=== PATIENT | female | born 1965 | race Caucasian/White ===

== ENCOUNTER 2016-08-08 08:48 | Emergency (ER) | payer BC ==
[~2016-08-08] VITALS: Ht 154.9 cm; Wt 73.2 kg
[2016-08-08 09:03] VITALS: TEMP 36.7; Ht 154.9 cm; Wt 73.2 kg
--- NOTE | 2016-08-08 09:03 | EMERGENCY ROOM VISIT NOTE ---
History Report prepared by Judd: Lamine Beasley Under the Supervision of: Dr. Daron Lam M.D. First contact with patient: 08:51 Chief Complaint: SYNCOPE Stated Complaint: SYNCOPE History of Present Illness The patient is a 50 year old female who presents to the Emergency Room with complaints of a resolved episode of syncope that occurred just prior to arrival. The patient was shoveling snow when she started to experience an aura. The patient then lost consciousness, which she does not remember. The patient's witnessed the episode. The patient was not feeling any headaches, chest pain, shortness of breath, or nausea prior to the episode. She denies abdominal pain, urinary symptoms, problems moving her bowels, weakness, or numbness. The patient does not currently have any complaints. As per EMS, the patient is hypotensive at baseline. The patient had a brownie and two glasses of orange juice this morning. The patient has been hypoglycemic before, but is not medicated for diabetes. She has a family history of diabetes. The patient has experienced syncope in the past, which was years ago. The patient does not believe she had a seizure. The patient is on her period currently. 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 Please see Additional Medical History Sheet. Past Medical & Surgical Medical Problems: (1) Migraines (2) Syncope Family History Cancer FH: diabetes mellitus Hypertension Social History Smoking Status: Never Smoker Housing Status: lives with family Occupation Status: employed Current/Historical Medications Scheduled Divalproex Sodium (Depakote Delay Rel), 2 TABS PO HS Topiramate (Topamax ), 3 TABS PO HS Scheduled PRN Sumatriptan Succinate (Imitrex), 25 MG PO PRN PRN for Migraine Allergies Coded Allergies: Sulfa Antibiotics (Unverified Allergy, Intermediate, UNKNOWN, 08/08/16) Sulfacetamide (Unverified Allergy, Intermediate, UNKNOWN, 08/08/16) Uncoded Allergies: N (Allergy, Unknown, 08/12/02) SULFA (Allergy, Unknown, 08/12/02) SULFACETAMIDE (Generic Allergy) (Allergy, Unknown, Y, 08/08/16) Physical Exam Vital Signs Date Time Temp Pulse Resp B/P Pulse Ox O2 Delivery O2 Flow Rate FiO2 08/08/16 10:53 83 20 114/58 96 Room Air 08/08/16 10:08 93 08/08/16 09:27 81 125/70 89 122/71 94 131/65 08/08/16 09:07 96 Room Air 08/08/16 09:03 36.7 103 16 111/69 96 Room Air Physical Exam GENERAL: Patient appears to be in no acute distress. Patient follows commands. Patient does not appear toxic. Patient is adequately hydrated and well- nourished. SKIN: No erythema, pallor, cyanosis or rash HEENT: Normal head, pupils equal, reactive to light and accommodation. Ears normal. Oral cavity and posterior pharynx appear normal. Neck: Without adenopathy, no neck vein distention. LUNGS: Clear to auscultation. No wheezes, no rales, no rhonchi. HEART: No murmurs. No gallops. No rubs ABDOMEN: No masses, no rebound, no hepatomegaly or splenomegaly. EXTREMITIES: No signs of trauma. No pedal or pretibial edema. No calf or thigh tenderness. NEUROLOGIC: Cranial nerves II-XII within normal limits. No gross motor sensory function deficits. Medical Decision & Procedures ER Provider Diagnostic Interpretation: X ray results are stated below per my interpretation and the radiologist's interpretation. CHEST 2 VIEWS ROUTINE CLINICAL HISTORY: syncope COMPARISON STUDY: No previous studies for comparison. FINDINGS: The cardiac and mediastinal contours are normal. There is no evidence of focal pulmonary consolidation. There is no evidence of failure. No pleural effusions are visualized.[ Minimally prominent right basilar markings are felt to be atelectatic. IMPRESSION: No active disease in the chest. Electronically signed by: Calvin Quispe M.D. 08/08/2016 9:45 AM Dictated Date/Time: 08/08/2016 9:44 AM Laboratory Results 08/08/16 09:15 Red Blood Count 4.95, Mean Corpuscular Volume 92.3, Mean Corpuscular Hemoglobin 31.1, Mean Corpuscular Hemoglobin Concent 33.7, Mean Platelet Volume 9.6, Neutrophils (%) (Auto) 75.6, Lymphocytes (%) (Auto) 15.6, Monocytes (%) (Auto) 6.5, Eosinophils (%) (Auto) 1.5, Basophils (%) (Auto) 0.5, Neutrophils # (Auto) 4.89, Lymphocytes # (Auto) 1.01, Monocytes # (Auto) 0.42, Eosinophils # (Auto) 0.10, Basophils # (Auto) 0.03 08/08/16 09:15 Test 08/08/16 09:15 White Blood Count 6.47 K/uL (4.8-10.8) Red Blood Count 4.95 M/uL (4.2-5.4) Hemoglobin 15.4 g/dL (12.0-16.0) Hematocrit 45.7 % (37-47) Mean Corpuscular Volume 92.3 fL (80-100) Mean Corpuscular Hemoglobin 31.1 pg (25-34) Mean Corpuscular Hemoglobin Concent 33.7 g/dl (32-36) Platelet Count 247 K/uL (130-400) Mean Platelet Volume 9.6 fL (7.4-10.4) Neutrophils (%) (Auto) 75.6 % Lymphocytes (%) (Auto) 15.6 % Monocytes (%) (Auto) 6.5 % Eosinophils (%) (Auto) 1.5 % Basophils (%) (Auto) 0.5 % Neutrophils # (Auto) 4.89 K/uL (1.4-6.5) Lymphocytes # (Auto) 1.01 K/uL (1.2-3.4) Monocytes # (Auto) 0.42 K/uL (0.11-0.59) Eosinophils # (Auto) 0.10 K/uL (0-0.5) Basophils # (Auto) 0.03 K/uL (0-0.2) RDW Standard Deviation 43.5 fL (36.4-46.3) RDW Coefficient of Variation 12.9 % (11.5-14.5) Immature Granulocyte % (Auto) 0.3 % Immature Granulocyte # (Auto) 0.02 K/uL (0.00-0.02) Anion Gap 10.0 mmol/L (3-11) Est Creatinine Clear Calc Drug Dose 72.4 ml/min Estimated GFR () 91.9 Estimated GFR (Non- 79.3 BUN/Creatinine Ratio 16.5 (10-20) Calcium Level 9.1 mg/dl (8.5-10.1) Total Bilirubin 0.3 mg/dl (0.2-1) Aspartate Amino Transf (AST/SGOT) 12 U/L (15-37) Alanine Aminotransferase (ALT/SGPT) 22 U/L (12-78) Alkaline Phosphatase 61 U/L (45-117) Troponin I < 0.015 ng/ml (0-0.045) Total Protein 7.3 gm/dl (6.4-8.2) Albumin 3.8 gm/dl (3.4-5.0) Globulin 3.5 gm/dl (2.5-4.0) Albumin/Globulin Ratio 1.1 (0.9-2) Thyroid Stimulating Hormone (TSH) 1.670 uIu/ml (0.300-4.500) Human Chorionic Gonadotropin, Quant < 1 mIU/mL Laboratory results as stated above per my review. ECG Indication: syncope Rate (beats per minute): 93 Rhythm: normal sinus Findings: no acute ischemic change, no ectopy ED Course 0852: Past medical records reviewed. The patient was evaluated in room B9. A complete history and physical examination was performed. 1055: Reassessed the patient. Discussed the findings with her. She verbalized understanding and agreement of the treatment plan. The patient is ready for discharge. Medical Decision I considered multiple diagnoses including vasovagal syncope, arrhythmia, hypoglycemia, other metabolic disorders, hypotension,CVA, TIA, seizure disorder. 50-year-old female with syncopal episode. The patient is a prior history of low blood sugars. The patient ate some brownies prior to arrival of the medics. At that time the blood sugar was found to be left greater than 200. The patient now is asymptomatic. She has no fever, chills. She has no chest pain or arrhythmia. During her stay in the ED she remained asymptomatic. Multiple labs, EKG and imaging were evaluated. Please see above. The patient had orthostatic vital signs obtained which were felt to be within normal range. She had an ambulatory trial prior to departure and felt fine. The patient will be discharged and encouraged to follow-up with her family physician. Impression Primary Impression: Syncope Scribe Attestation The scribe's documentation has been prepared under my direction and personally reviewed by me in its entirety. I confirm that the note above accurately reflects all work, treatment, procedures, and medical decision making performed by me. Departure Information Dispostion Home / Self-Care Referrals Andrews Amado Jr,D.O. (PCP) Patient Instructions ED Fainting Unkn Cause, My [facility] Additional Instructions Continue your current medications as prescribed. Follow-up with your family physician within the next 7 days. Return here sooner if you have another fainting episode.
[2016-08-08 09:07] VITALS: O2SAT 96
[2016-08-08 09:41] LABS: BASO % 0.5 %; BASO ABS # 0.03 K/uL (0-0.2); COMPLETE YES; EOS % 1.5 %; HEMATOCRIT 45.7 % (37-47); IG% 0.3 %; LYMPH % 15.6 %; LYMPH ABS # 1.01 K/uL (1.2-3.4); MEAN CELL VOLUME 92.3 fL (80-100); MEAN CORPUSCULAR HEMOGLOBIN 31.1 pg (25-34); MEAN CORPUSCULAR HGB CONC 33.7 g/dl (32-36); MEAN PLATELET VOLUME 9.6 fL (7.4-10.4); MONO % 6.5 %; NEUT % 75.6 %; PLATELET COUNT 247 K/uL (130-400); RED BLOOD COUNT 4.95 M/uL (4.2-5.4); WHITE BLOOD COUNT 6.47 K/uL (4.8-10.8)
--- NOTE | 2016-08-08 09:46 | DIAGNOSTIC IMAGING REPORT ---
CHEST 2 VIEWS ROUTINE CLINICAL HISTORY: syncope COMPARISON STUDY: No previous studies for comparison. FINDINGS: The cardiac and mediastinal contours are normal. There is no evidence of focal pulmonary consolidation. There is no evidence of failure. No pleural effusions are visualized.[ Minimally prominent right basilar markings are felt to be atelectatic. IMPRESSION: No active disease in the chest. Electronically signed by: Calvin Quispe M.D. 08/08/2016 9:45 AM Dictated Date/Time: 08/08/2016 9:44 AM
[2016-08-08] MEDS ORDERED: TOPI25TA99 PO (09:48)
[2016-08-08] MEDS ORDERED: DIVA250T4 PO (09:48)
[2016-08-08] MEDS ORDERED: SUMA25TA12 PO (09:48)
[2016-08-08 09:49] LABS: ALT/SGPT 22 U/L (12-78); BLOOD UREA NITROGEN 14 mg/dl (7-18); BUN/CREATININE RATIO 16.5 (10-20); CALCIUM 9.1 mg/dl (8.5-10.1); CARBON DIOXIDE 21 mmol/L (21-32); CHLORIDE 111 mmol/L (98-107); CREATININE 0.86 mg/dl (0.60-1.20); GLUCOSE 90 mg/dl (70-99); POTASSIUM 3.9 mmol/L (3.5-5.1); SODIUM 142 mmol/L (136-145)
[2016-08-08 09:59] LABS: ALB/GLOB RATIO 1.1 (0.9-2); ALKALINE PHOSPHATASE 61 U/L (45-117); AST/SGOT 12 U/L (15-37)
[2016-08-08 10:53] VITALS: BP 114/58; PULSE 83; O2SAT 96
== END 2016-08-08 11:16 | disposition home or self-care (01) ==
LOC: EDBD 08:48 → C.EDB 08:50
DX: R55 Syncope and collapse (principal)

== ENCOUNTER → 2016-10-10 | Outpatient (CLI) | payer BC ==
[~2016-10-10] MED LIST: DIVA250T4 PO; SUMA25TA12 PO; TOPI25TA99 PO
--- NOTE | 2016-10-18 10:33 | CODING QUERY NO DIAGNOSIS ---
TREATMENT RENDERED WITHOUT A DIAGNOSIS To promote full compliance with coding requirements relating to patient care, physician participation is requested in all cases of zyglo technician uncertainty. Please assist us with providing a diagnosis/symptom for the test(s) below: A diagnosis/symptom was not documented on your Order. A valid diagnosis/symptom is required to bill all insurances. Please remember that we are unable to code a diagnosis of rule out, probable, possible, questionable, or suspected. Tests that require a diagnosis for tests performed on 10/10/16: * THIN PREP PAP TEST DIAGNOSIS: Provider Signature: Date: Thank you Camille Brown [employer] Once completed, please kindly fax back to [phone] For questions please call [phone]
== END ==
LOC: C.PAPS 11:35
PROVIDERS: ATTEND Nurse Practitioner Family
DX: Z01.411 Encounter for gynecological examination (general) (routine) with abnormal findings (principal)

== ENCOUNTER → 2016-10-11 | Outpatient (CLI) | payer BC ==
--- NOTE | 2016-10-11 14:18 | DIAGNOSTIC IMAGING REPORT ---
PELVIC ULTRASOUND CLINICAL HISTORY: Menorrhagia. COMPARISON STUDY: None. TECHNIQUE: Transabdominal and transvaginal sonography of the pelvis was performed. FINDINGS: The uterus measures 8.7 x 5.2 x 4.2 cm. The endometrium measures 6 mm in thickness. There are several nabothian cysts. The right ovary measures 2.5 x 2.5 x 1.7 cm and the left ovary measures 2.9 x 2.1 x 1.5 cm. Color flow is identified within each ovary. There are multiple follicles within each ovary. A 1.2 cm right paraovarian cyst was noted. There is no free fluid. IMPRESSION: Unremarkable pelvic ultrasound. Normal endometrial thickness of 6 mm. Electronically signed by: Wenceslao Estrada M.D. 10/11/2016 2:16 PM Dictated Date/Time: 10/11/2016 2:15 PM
== END | disposition home or self-care (01) ==
LOC: C.ULTR 13:15
PROVIDERS: ATTEND Nurse Practitioner Family
DX: N92.0 Excessive and frequent menstruation with regular cycle (principal)

== ENCOUNTER → 2017-01-08 | Outpatient (CLI) | payer BC | END | disposition home or self-care (01) | LOC: C.LABSPEC 10:47 | DX: L03.039 Cellulitis of unspecified toe (principal) ==

== ENCOUNTER → 2017-01-28 | Outpatient (CLI) | payer BC ==
--- NOTE | 2017-01-28 13:09 | MAMMOGRAPHY REPORT ---
BILATERAL DIGITAL SCREENING MAMMOGRAM TOMOSYNTHESIS WITH CAD: 01/28/2017 CLINICAL HISTORY: Routine screening. Patient has no complaints. TECHNIQUE: Breast tomosynthesis in addition to standard 2D mammography was performed. Current study was also evaluated with a Computer Aided Detection (CAD) system. COMPARISON: Comparison is made to exams dated: 01/25/2016 mammogram, 01/23/2015 mammogram, 01/18/2014 m ammogram, 01/12/2013 mammogram, 01/08/2012 mammogram, and 01/03/2011 mammogram - [facility] nter. BREAST COMPOSITION: There are scattered areas of fibroglandular density in both breasts. FINDINGS: There are multiple circumscribed subcentimeter masses scattered in the breasts, which is a typically benign mammographic pattern. No suspicious spiculated or irregular mass, architectural dis tortion or cluster of suspicious microcalcifications is seen. IMPRESSION: ACR BI-RADS CATEGORY 1: NEGATIVE There is no mammographic evidence of malignancy. A 1 year screening mammogram is recommended. The pa tient will receive written notification of the results. Approximately 10% of breast cancers are not detected with mammography. A negative mammographic report should not delay biopsy if a clinically suggestive mass is present. Katia Arzate M.D. ay/:01/28/2017 08:16:20 Disability Aide: Mary ARMANDO)(M), [facility] letter sent: Normal 1/2 BI-RADS Code: ACR BI-RADS Category 1: Negative
== END | disposition home or self-care (01) ==
LOC: C.MAMM 07:15
DX: Z12.31 Encounter for screening mammogram for malignant neoplasm of breast (principal)

== ENCOUNTER → 2018-02-03 | Outpatient (CLI) | payer OTHER ==
[~2018-02-03] MED LIST changes: -DIVA250T4 PO; +DIVA250T93 PO
--- NOTE | 2018-02-03 14:44 | MAMMOGRAPHY REPORT ---
BILATERAL DIGITAL SCREENING MAMMOGRAM TOMOSYNTHESIS WITH CAD: 02/03/2018 CLINICAL HISTORY: Routine screening examination. TECHNIQUE: The study was acquired using full field digital technology and interpreted from soft copy. Breast tomosynthesis in addition to standard 2D mammography was performed. Current study was also ev aluated with a Computer Aided Detection (CAD) system. COMPARISON: Comparison is made to exams dated: 01/28/2017 mammogram, 01/25/2016 mammogram, 01/23/2015 ma mmogram, 01/18/2014 mammogram, 01/12/2013 mammogram, and 01/03/2011 mammogram - [facility] ter. BREAST COMPOSITION: There are scattered areas of fibroglandular density in both breasts. FINDINGS: The parenchymal pattern is unchanged. No developing mass, architectural distortion or cluster of susp icious microcalcifications is seen in either breast. IMPRESSION: ACR BI-RADS CATEGORY 2: BENIGN There is no mammographic evidence of malignancy. A 1 year screening mammogram is recommended.( 019) The patient will receive written notification of the results. Some breast cancers are not detected with mammography. A negative mammographic report should not carlos y biopsy if a clinically suggestive mass is present. Katia Arzate M.D. ay/:02/03/2018 08:13:34 Supervisor [employer]: RT Zayra(Mckenzie)(M), [facility] letter sent: Normal 1/2 BI-RADS Code: ACR BI-RADS Category 2: Benign
== END | disposition home or self-care (01) ==
LOC: C.MAMM 07:19
DX: Z12.31 Encounter for screening mammogram for malignant neoplasm of breast (principal)

== ENCOUNTER 2023-11-04 08:21 | Observation (INO) ==
[~2023-11-04 08:21] MED LIST changes: -DIVA250T93 PO; -SUMA25TA12 PO; -TOPI25TA99 PO; +metroNIDAZOLE 500 MG/100 ML BAG IV SCH
--- NOTE | 2023-11-04 08:34 | Emergency Department Note ---
Impression & Plan Abdominal pain ADMIT ED Provider Note HPI: History obtained from patient. The patient is a 57-year-old female who presents the emergency department with a chief complaint of lower chest pain and epigastric discomfort that developed overnight. Patient states she is also had some nausea but denies any vomiting. Patient describes the pain as a burning type pain in her epigastric area. Patient denies any shortness of breath. On arrival here to the ED the patient is hemodynamically stable, she otherwise appears to be in no acute distress. ROS: - Per HPI Differential Diagnosis: Acute cholecystitis, acute pancreatitis, acute gastritis, acute esophagitis, acute coronary syndrome, choledocholithiasis, amongst other potential pathologies. *Outpatient medications and allergy history reviewed. PE: General: Alert HEENT: Normocephalic, trachea midline Eyes: Extraocular eye movement is intact, no scleral erythema Pulmonary: Clear to auscultation bilaterally, no wheezing Cardio: Regular rate and rhythm GI: Abdomen is soft to palpation, there is moderate tenderness over the epigastric area to palpation without guarding or rigidity : No suprapubic tenderness MSK: No evidence of trauma or malformation of the extremities, no edema Skin: No evidence of rash Neuro: Alert, no focal deficits Psychiatric: Cooperative INDEPENDENT INTERPRETATIONS: nuclear monitoring technician: (As interpreted by myself): - An order was placed for continuous cardiac monitoring - Patient was noted to be in sinus rhythm with a rate of 80 EKG: (As interpreted by myself): Rate: 85 Rhythm: Normal sinus rhythm Intervals: Within normal limits ST changes: No ST elevation Time: 0827 Chest x-ray: (As interpreted by myself): No acute disease Interventions provided in ED: -IV Zofran Medical Decision Making: IV was established and lab work obtained, patient was placed on nuclear monitoring technician. Lab work shows a mild leukocytosis of 11.11, hemoglobin is normal, platelet count is normal, CMP shows a transaminitis with AST of 486 and ALT of 283. Bilirubin is normal. Troponin is negative. Lipase is normal. EKG per my interpretation does not show any acute ischemic changes. Chest x-ray does not show any evidence of acute disease. CT imaging of the abdomen and pelvis was obtained and is questionable for acute cholecystitis. Also mentioned is horseshoe kidney with areas concerning for possible angiomyolipoma recommending nonemergent urology consultation, per the interpreting radiologist. I discussed all the above findings with the patient. She states she does feel improved on my reassessment. She is in agreement for general surgery consultation in regards to possible acute cholecystitis and was made aware of the finding of horseshoe kidney with possible angiomyolipomas and need for outpatient follow-up with urology. Patient was evaluated at the bedside by general surgery, ultrasound imaging was obtained following the initial evaluation by general surgery and ultrasound imaging is equivocal for acute cholecystitis. CBD is noted to be the upper limit of normal. Following the studies, recommendation was made by general surgery for admission to the hospitalist service for further workup of transaminitis including MRCP and surgical consultation in the event surgical intervention is warranted following MRCP and possibly HIDA scan. Case was discussed with the on-call hospitalist, Dr. Muhammad, and the patient was placed for admission in stable condition for further care. Consultants/Discussions held with other healthcare providers: -General surgery, Rhonda Starks PA-C / Dr. Rivas -Hospitalist, Dr. Muhammad Disposition discussion held by myself with: -Patient Diagnosis: 1. Abdominal pain, acute 2. Transaminitis, acute 3. Leukocytosis, acute, nonspecific 4. Nausea, acute Disposition: Admission Fernando Morales DO Emergency Medicine Past Med/Surg History Medical History (Updated 11/04/23 @ 14:05 by Fernando Morales DO) Horseshoe kidney Hyperlipidemia Arthritis of carpometacarpal (CMC) joint of left thumb De Quervain's tenosynovitis Migraines Surgical History S/P cataract extraction S/P tooth extraction Family History Father Hypertension Myocardial infarction Parkinson disease Sister Diabetes Brother Migraine headache Son Migraine headache Mother Cancer Uterine Sister Diabetes Denies family history of Ovarian cancer Prostate cancer Breast cancer Colorectal cancer Social History Smoking Status: Never smoker Second Hand Exposure: Yes; Do You Dip or Chew Tobacco: No; Hx Alcohol Use: Yes Alcohol Intake Frequency: Monthly or Less Alcohol Intake Frequency Comment: very social Hx Substance Use: No Preferred Language: Irish Communication Ability: Effective Visual Impairment: Partially Limited Hearing Ability: Normal Business Process Expert Required: No Beliefs That Will Affect Care: None marital status: Current Living Situation: Spouse Current Living Situation Comment: 4 goats, 14 chickens, 2 dogs current occupational status: employed and retired current occupation: retired from [employer]; owns own business (2) now How many Children do You have: 2 Feels Safe at Home: Yes Childhood Exposure to Second-Hand Smoke: No Diet: regular Diet Comment: regular caffeine: Yes (iced tea) during the past year weight has: remained stable Dental Care, Regularly: Yes Physical Activity Frequency: Daily Seatbelt Use: always Sunscreen Use: Yes Allergies Allergies Allergy/AdvReac Type Severity Reaction Status Date / Time Sulfa (Sulfonamide Allergy Intermediate UNKNOWN Verified 11/04/23 09:42 Antibiotics) Home Meds Previous Rx's Medication Instructions Recorded betamethasone dipropionate 0.05 % 1 applic topical BID PRN skin 04/11/22 topical cream irritation #45 grams fremanezumab-vfrm 225 mg/1.5 mL 225 mg (1.5 mL) subcut MONTHLY #1 06/10/23 subcutaneous syringe mL sumatriptan succinate 100 mg tablet 100 mg PO .COMPLEX PRN migraine 06/10/23 headache #9 tabs meloxicam 15 mg tablet 15 mg PO DAILY #30 tabs 08/14/23 Results & Data (ED) Vital Signs Vital Signs - 24 hr 11/04/23 08:25 11/04/23 08:35 11/04/23 08:54 Temperature 36.7 C Temperature Source Oral Pulse Rate 88 77 Pulse Rate [Right Finger] Respiratory Rate 18 Respiratory Effort / Characteristics Non-Labored Respiratory Depth Normal Respiratory Pattern Regular Blood Pressure 143/65 H Blood Pressure [Right Arm] Blood Pressure Mean 91 Blood Pressure Mean [Right Arm] Pulse Oximetry 98 Oxygen Delivery Method Room Air Room Air Sepsis Recent Fever Within 48 Hours No Sepsis New/Unexplained Change in Mental Status N/A Sepsis Action Taken by Nursing No Action Required 11/04/23 09:35 11/04/23 11:06 11/04/23 12:31 Temperature Temperature Source Pulse Rate Pulse Rate [Right Finger] 72 84 84 Respiratory Rate 22 20 22 Respiratory Effort / Characteristics Non-Labored Non-Labored Spontaneous Non-Labored Spontaneous Respiratory Depth Normal Normal Normal Respiratory Pattern Blood Pressure Blood Pressure [Right Arm] 122/60 126/86 109/76 Blood Pressure Mean Blood Pressure Mean [Right Arm] 80 99 87 Pulse Oximetry 97 96 97 Oxygen Delivery Method Room Air Room Air Room Air Sepsis Recent Fever Within 48 Hours Sepsis New/Unexplained Change in Mental Status Sepsis Action Taken by Nursing 11/04/23 13:06 Temperature Temperature Source Pulse Rate 76 Pulse Rate [Right Finger] Respiratory Rate Respiratory Effort / Characteristics Respiratory Depth Respiratory Pattern Blood Pressure Blood Pressure [Right Arm] Blood Pressure Mean Blood Pressure Mean [Right Arm] Pulse Oximetry Oxygen Delivery Method Sepsis Recent Fever Within 48 Hours Sepsis New/Unexplained Change in Mental Status Sepsis Action Taken by Nursing Laboratory Data 11/04/23 08:30 11/04/23 08:30 Lab Results 11/04/23 Range/Units 08:30 WBC 11.11 H (4.8-10.8) K/ul RBC 4.99 (4.20-5.40) M/uL Hgb 14.7 (12.0-16.0) g/dl Hct 44.5 (37.0-47.0) % MCV 89.2 (80.0-100.0) fL MCH 29.5 (25.0-34.0) pg MCHC 33.0 (32.0-36.0) g/dL RDW Std Deviation 39.9 (36.4-46.3) fL RDW Coeff of Sissy 12.2 (11.5-14.5) % Plt Count 269 (130-400) K/uL MPV 9.4 (9.4-12.4) fL Immature Gran % (Auto) 0.4 % Neut % (Auto) 84.5 % Lymph % (Auto) 9.1 % [place] % (Auto) 5.3 % Eos % (Auto) 0.2 % Baso % (Auto) 0.5 % Neut # (Auto) 9.40 H (1.40-6.50) K/uL Lymph # (Auto) 1.01 L (1.20-3.40) K/uL [place] # (Auto) 0.59 (0.11-0.59) K/uL Eos # (Auto) 0.02 (0.00-0.50) K/uL Baso # (Auto) 0.05 (0.00-0.20) K/uL Immature Gran # (Auto) 0.04 (0.01-0.20) K/uL PT 10.2 (9.0-12.0) Seconds INR 0.9 (0.9-1.1) Sodium 139 (136-145) mmol/L Potassium 3.9 (3.5-5.1) mmol/L Chloride 104 (98-107) mmol/L Carbon Dioxide 27 (21-32) mmol/L Anion Gap 8 (3-11) BUN 21 (6-23) mg/dl Creatinine 0.70 (0.6-1.2) mg/dl Est Cr Clr Drug Dosing 81.9 ml/min Est GFR ( Amer) 112.3 ml/min Est GFR (Non-Af Amer) 96.9 ml/min BUN/Creatinine Ratio 30.0 H (10-20) Glucose 112 H (70-99(Fasting)) mg/dl Calcium 9.2 (8.6-10.3) mg/dl Total Bilirubin 0.7 (0.2-1.0) mg/dl AST 486 H (13-39) U/L ALT 283 H (7-52) U/L Alkaline Phosphatase 85 (34-104) U/L Troponin I High Sens 4.2 (0-14) pg/ml Total Protein 6.9 (6.0-8.3) gm/dl Albumin 4.4 (3.4-5.0) gm/dl Globulin 2.5 (2.5-4.0) gm/dl Albumin/Globulin Ratio 1.8 (0.9-2) Lipase 17 (11-82) U/L Administered Medications Discontinued Medications Ioversol (Optiray 320 100ml) 95 ml IV ONCE ONE Stop: 11/04/23 09:22 Last Admin: 11/04/23 09:21 Dose: 95 ml Documented By: KSF Ondansetron HCl (Ondansetron Inj 2 Mg/Ml 2 Ml Vial) Confirm Administered Dose 4 mg .ROUTE .STK-MED ONE Stop: 11/04/23 08:39 Last Admin: 11/04/23 08:38 Dose: 4 mg Documented By: NRB Ondansetron HCl (Ondansetron Inj 2 Mg/Ml 2 Ml Vial) 4 mg IV NOW STA Stop: 11/04/23 08:40 Last Admin: 11/04/23 08:56 Dose: Not Given Documented By: NRB Imaging Data Radiologist's Impression: Chest X-Ray 11/04/23 08:25 XR chest 1V portable HISTORY: Chest pain, nonspecific COMPARISON: Chest 08/08/2016. FINDINGS: There are low lung volumes. No focal lung consolidations to suggest a pneumonia. No evidence for pulmonary edema. The cardiac silhouette remains top normal in size. No acute fractures. IMPRESSION: No acute process. ACT 112: Negative or not required by law. Electronically signed by: Justino La M.D. 11/04/2023 8:59 AM Abdomen/Pelvis CT 11/04/23 09:[address] WITH IV CONTRAST CT DOSE: 932.4 mGy.cm HISTORY: upper abd pain TECHNIQUE: Multiaxial CT images of the abdomen and pelvis were performed following the use of intravenous contrast. A dose lowering technique was utilized adhering to the principles of ALARA. COMPARISON STUDY: None. FINDINGS: Patchy and linear densities at the lung bases favor dependent change/atelectasis. No pneumoperitoneum. No pneumatosis. No acute fractures identified. There is a 3 cm duodenal diverticulum. A 5 mm hypodense lesion within the right hepatic lobe on image 48 is too small to characterize but favors a cyst. There is an 8 mm hypodense focus within the posterior segment of the right hepatic lobe on image 35. There is also too small to characterize but may represent a benign lesion such as a hemangioma. The spleen, adrenal glands, and pancreas are unremarkable. Multiple small gallstones. There is pericholecystic edema. This raises the possibility of an acute cholecystitis. There is a horseshoe kidney. No ureteral stones. No hydronephrosis. There appear to be a few punctate nonobstructing stones within the left lower pole moiety on image 153. In addition, the left renal moiety contains 2 similar-appearing masses. These renal masses demonstrate soft tissue and macroscopic fatty components. Therefore, these favor angiomyolipomas. These masses measure 5.2 cm and 5.5 cm. The main portal vein is patent. No retroperitoneal lymphadenopathy. There is a left circumaortic renal vein. Normal caliber abdominal aorta. No pelvic lymphadenopathy or pelvic free fluid. The bladder is mildly distended. No bladder wall thickening. The uterus and bilateral adnexa are unremarkable. Colonic diverticulosis. No evidence for acute diverticulitis. Normal appendix. No bowel wall thickening or obstruction. IMPRESSION: 1. Multiple small gallstones with pericholecystic edema. This raises the possibility of acute cholecystitis. Surgical consultation recommended. 2. Horseshoe kidney. There are few punctate nonobstructing stones within the left renal moiety. No ureteral stones. No hydronephrosis. 3. There are 2 similar-appearing masses within the left renal moiety which contain macroscopic fat and therefore favor angiomyolipomas. Both these lesions measure greater than 5 cm in size. Therefore, follow-up nonemergent urology consultation recommended for possible resection as these lesions present a high risk of hemorrhage. 4. No bowel wall thickening or obstruction. 5. Normal appendix. 6. Additional findings as described above. ACT 112: Negative or not required by law. Electronically signed by: Justino La M.D. 11/04/2023 10:00 AM Liver Ultrasound 11/04/23 10:51 ABDOMINAL ULTRASOUND, RIGHT UPPER QUADRANT HISTORY: eval acute king, elevated AST/AST. COMPARISON: Abdomen and pelvis CT 11/04/2023. FINDINGS: Pancreas: The pancreas demonstrates a normal echotexture. Liver: There is 9 mm cyst within the right hepatic lobe. The main portal vein is patent. Gallbladder: A few small gallstones. Mild gallbladder wall thickening and trace pericholecystic edema. The gallbladder wall measures approximately 5 mm. However, the technologist reported a negative sonographic Dobbins sign. CBD: Upper limits of normal measuring 6 mm. Right kidney: Horseshoe kidney again noted. No hydronephrosis. Partially visualized mass within the left lower pole moiety again noted which is better appreciated on the same day abdomen and pelvis CT. IMPRESSION: 1. A few small gallstones with gallbladder wall thickening and trace pericholecystic fluid. However, the technologist reported a negative sonographic Dobbins sign. Therefore, these findings are equivocal for acute cholecystitis and could be related to underlying hepatic pathology or a low protein state. Consider follow-up nuclear medicine HIDA scan if there is clinical concern for acute cholecystitis. 2. Horseshoe kidney. No hydronephrosis. A partially visualized mass within the left lower pole moiety is better appreciated on the same day abdomen and pelvis CT. ACT 112: Negative or not required by law. Electronically signed by: Justino La M.D. 11/04/2023 12:01 PM Discharge Plan Visit Data Chief Complaint: Chest Pain Stated Complaint: CHEST PAINS, NAUSEA, SWEATS ED Provider: Fernando Morales Discharge Problem: Abdominal pain Forms Stand Alone Forms: My [facility] [place] [employer] IDE Prescriptions Prescriptions: No Action meloxicam 15 mg tablet 15 mg PO DAILY Qty: 30 3RF betamethasone dipropionate 0.05 % cream 1 applic topical BID PRN (Reason: skin irritation) Qty: 45 0RF Rx Instructions: apply to L wrist/hand fremanezumab-vfrm 225 mg/1.5 mL syringe 225 mg subcut MONTHLY Qty: 1 11RF sumatriptan succinate 100 mg tablet 100 mg PO .COMPLEX PRN (Reason: migraine headache) Qty: 9 5RF Rx Instructions: 100 mg PO TAKE 1 TAB AT ONSET OF MIGRAINE. MAY REPEAT IN 2 HOURS IF NEEDED. LIMIT 3 DAYS PER WEEK Referrals Referrals: Danis Arzate MD [Physician] - (The urology office will call you with an appointment with one of the urology staff to discuss the results of your CT scan findings) Anabel Ingram DO [Primary Care Provider] -
[2023-11-04] MEDS: ONDANSETRON INJ 2 MG/ML 2 ML VIAL ONE ×2 (08:38→14:48)
[2023-11-04] MEDS: ONDANSETRON INJ 2 MG/ML 2 ML VIAL IV STA (08:56)
[2023-11-04 08:58] LABS: Basophils # (auto) 0.05 K/uL (0.00-0.20); Basophils % (auto) 0.5 %; Eosinophils # (auto) 0.02 K/uL (0.00-0.50); Eosinophils % (auto) 0.2 %; Hematocrit (blood only) 44.5 % (37.0-47.0); Hemoglobin 14.7 g/dl (12.0-16.0); Immature Granulocytes # (auto) 0.04 K/uL (0.01-0.20); Immature Granulocytes % (auto) 0.4 %; Lymphocytes # (auto) 1.01 K/uL (1.20-3.40); Lymphocytes % (auto) 9.1 %; Mean Corpuscular Hemoglobin 29.5 pg (25.0-34.0); Mean Corpuscular Volume 89.2 fL (80.0-100.0); Mean Platelet Volume 9.4 fL (9.4-12.4); Monocytes # (auto) 0.59 K/uL (0.11-0.59); Monocytes % (auto) 5.3 %; Neutrophils % (auto) 84.5 %; Platelet Count 269 K/uL (130-400); RDW Coefficient of Variation 12.2 % (11.5-14.5); RDW Standard Deviation 39.9 fL (36.4-46.3); Red Blood Count 4.99 M/uL (4.20-5.40); White Blood Count 11.11 K/ul (4.8-10.8)
--- NOTE | 2023-11-04 09:01 | XRay Report ---
XR chest 1V portable HISTORY: Chest pain, nonspecific COMPARISON: Chest 08/08/2016. FINDINGS: There are low lung volumes. No focal lung consolidations to suggest a pneumonia. No evidenc e for pulmonary edema. The cardiac silhouette remains top normal in size. No acute fractures. IMPRESSION: No acute process. ACT 112: Negative or not required by law. Electronically signed by: Justino La M.D. 11/04/2023 8:59 AM
[2023-11-04 09:04] LABS: INR 0.9 (0.9-1.1); Prothrombin Time 10.2 Seconds (9.0-12.0)
[2023-11-04 09:09] LABS: Albumin Globulin Ratio 1.8 (0.9-2); Albumin Level 4.4 gm/dl (3.4-5.0); Bilirubin,Total 0.7 mg/dl (0.2-1.0); Calcium 9.2 mg/dl (8.6-10.3); Creatinine Clr Calc Pharmacy 81.9 ml/min; Est GFR (African American) 112.3 ml/min; Est GFR (Non-African American) 96.9 ml/min; Globulin 2.5 gm/dl (2.5-4.0); Potassium 3.9 mmol/L (3.5-5.1); Total Protein 6.9 gm/dl (6.0-8.3)
[2023-11-04 09:15] LABS: Troponin I High Sensitivity 4.2 pg/ml (0-14)
[2023-11-04] MEDS: OPTIRAY 320 100ml IV ONE (09:21)
--- NOTE | 2023-11-04 10:03 | CT Scan Report ---
ABDOMEN AND PELVIS CT WITH IV CONTRAST CT DOSE: 932.4 mGy.cm HISTORY: upper abd pain TECHNIQUE: Multiaxial CT images of the abdomen and pelvis were performed following the use of intrave nous contrast. A dose lowering technique was utilized adhering to the principles of ALARA. COMPARISON STUDY: None. FINDINGS: Patchy and linear densities at the lung bases favor dependent change/atelectasis. No pneumo peritoneum. No pneumatosis. No acute fractures identified. There is a 3 cm duodenal diverticulum. A 5 mm hypodense lesion within the right hepatic lobe on image 48 is too small to characterize but favor s a cyst. There is an 8 mm hypodense focus within the posterior segment of the right hepatic lobe on image 35. There is also too small to characterize but may represent a benign lesion such as a hemangi moreno. The spleen, adrenal glands, and pancreas are unremarkable. Multiple small gallstones. There is p ericholecystic edema. This raises the possibility of an acute cholecystitis. There is a horseshoe kid candace. No ureteral stones. No hydronephrosis. There appear to be a few punctate nonobstructing stones w ithin the left lower pole moiety on image 153. In addition, the left renal moiety contains 2 similar- appearing masses. These renal masses demonstrate soft tissue and macroscopic fatty components. Theref ore, these favor angiomyolipomas. These masses measure 5.2 cm and 5.5 cm. The main portal vein is pat ent. No retroperitoneal lymphadenopathy. There is a left circumaortic renal vein. Normal caliber abdo jonathan aorta. No pelvic lymphadenopathy or pelvic free fluid. The bladder is mildly distended. No blad meño wall thickening. The uterus and bilateral adnexa are unremarkable. Colonic diverticulosis. No joy dence for acute diverticulitis. Normal appendix. No bowel wall thickening or obstruction. IMPRESSION: 1. Multiple small gallstones with pericholecystic edema. This raises the possibility of acute cholecy stitis. Surgical consultation recommended. 2. Horseshoe kidney. There are few punctate nonobstructing stones within the left renal moiety. No ur eteral stones. No hydronephrosis. 3. There are 2 similar-appearing masses within the left renal moiety which contain macroscopic fat an d therefore favor angiomyolipomas. Both these lesions measure greater than 5 cm in size. Therefore, f ollow-up nonemergent urology consultation recommended for possible resection as these lesions present a high risk of hemorrhage. 4. No bowel wall thickening or obstruction. 5. Normal appendix. 6. Additional findings as described above. ACT 112: Negative or not required by law. Electronically signed by: Justino La M.D. 11/04/2023 10:00 AM
--- NOTE | 2023-11-04 11:16 | Surgery Consultation ---
Date of Consultation November 04, 2023 Assessment & Plan (1) Abdominal pain: This is a 57yF with a PMH of HLD and migraines who presents to the [facility] ED on 11/04/23 with complaints of epigastric/upper midline and lower chest pain. The patient states her pain started in the middle of the night, rating it a 10/10 in severity. This was associated with feelings of nausea and clamminess. Due to her pain she presented to the ER today for further evaluation. A ct a/p was obtained that revealed multiple small gallstones with pericholecystic edema, raising concern for acute cholecystitis. She also was incidentally found to have a horseshoe kidney with suggestion of multiple angiomyolipoma's measuring >5cm. The patient last ate some bbq ribs/potatoes/green beans for dinner around 9:30pm last night. Blood work shows a WBC 11, Hbg 14, Tb 0.7 and elevated AST and ALT of 486 and 283 respectively. Lipase 17. Vital signs are stable and patient is afebrile. On examination abdomen is soft, non distended with discomfort elicited in the epigastric region mostly, and mild discomfort in the RUQ. For further workup we will obtain a RUQ US for evaluation of cholecystitis and CBD. Keep NPO for now. Will determine possibility of cholecystectomy s/p further imaging. Also discussed with my urology colleagues her urological findings. She may f/u with them in the office where they will help coordinate her an appointment with interventional radiology for consideration of embolization of her AML's given high risk of spontaneous bleed given their size. Supervising Physician Co-Signing Physician Notes pnt S&E, labs and imaging reviewed, agree w/ above. Epigastric pain started overnight, n/v. CT showed cholelithiasis w/ cholecystitis. US ordered, showed possible cholecystitis but neg sonographic huang's sign and mildly dilated CBD. ast/alt 400's, tbili normal, wbc 11. Moderate probability for choledocholithiasis, recommend MRCP and repeat labs in AM. iF choledocholithiasis, then transfer for ERCP. if not then potential cholecystec marla tomorrow. History of Present Illness History of Present Illness This is a 57yF with a PMH of HLD and migraines who presents to the [facility] ED on 11/04/23 with complaints of epigastric/upper midline and lower chest pain. The patient states her pain started in the middle of the night, rating it a 10/10 in severity. This was associated with feelings of nausea and clamminess. Due to her pain she presented to the ER today for further evaluation. A ct a/p was obtained that revealed multiple small gallstones with pericholecystic edema, raising concern for acute cholecystitis. She also was incidentally found to have a horseshoe kidney with suggestion of multiple angiomyolipoma's measuring >5cm. The patient last ate some bbq ribs/potatoes/green beans for dinner around 9:30pm last night. She never experienced symptoms like this before and no prior issues with eating fatty/greasy/spicy foods. No fevers/chills, SOB, back pain, or change in bowel habits. Urination has been normal. No prior abdominal surgical history. Drinks alcohol rarely on social occasions. Allergies Allergy/AdvReac Type Severity Reaction Status Date / Time Sulfa (Sulfonamide Allergy Intermediate UNKNOWN Verified 11/04/23 09:42 Antibiotics) Home Medications Medication Instructions Recorded Confirmed Type betamethasone dipropionate 0.05 % 1 applic topical BID PRN skin 04/11/22 11/04/23 Rx topical cream irritation #45 grams fremanezumab-vfrm 225 mg/1.5 mL 225 mg (1.5 mL) subcut MONTHLY #1 06/10/23 11/04/23 Rx subcutaneous syringe mL sumatriptan succinate 100 mg tablet 100 mg PO .COMPLEX PRN migraine 06/10/23 11/04/23 Rx headache #9 tabs meloxicam 15 mg tablet 15 mg PO DAILY #30 tabs 08/14/23 11/04/23 Rx Patient History Medical History (Updated 11/04/23 @ 14:05 by Fernando Morales DO) Horseshoe kidney Hyperlipidemia Arthritis of carpometacarpal (CMC) joint of left thumb De Quervain's tenosynovitis Migraines Surgical History S/P cataract extraction S/P tooth extraction Family History Father Hypertension Myocardial infarction Parkinson disease Sister Diabetes Brother Migraine headache Son Migraine headache Mother Cancer Uterine Sister Diabetes Denies family history of Ovarian cancer Prostate cancer Breast cancer Colorectal cancer Social History Smoking Status: Never smoker Second Hand Exposure: Yes (Parents); Do You Dip or Chew Tobacco: No; Hx Alcohol Use: No Hx Substance Use: No Preferred Language: Nepali Communication Ability: Effective Visual Impairment: Partially Limited Hearing Ability: Normal Rail Signal Mechanic Required: No Beliefs That Will Affect Care: None marital status: Current Living Situation: Spouse Current Living Situation Comment: [place] farm with current occupational status: employed and retired current occupation: retired from [employer]; owns own business (2) now How many Children do You have: 2 Other Information That Helps Us Care for You: No Feels Safe at Home: Yes Safety Concerns: Feels Safe At This Time Childhood Exposure to Second-Hand Smoke: No Diet: regular Diet Comment: regular caffeine: Yes (iced tea) during the past year weight has: remained stable Dental Care, Regularly: Yes Physical Activity Frequency: Daily Seatbelt Use: always Sunscreen Use: Yes Review of Systems Constitutional: + problem reported (clammy); no fever an d no chills Respiratory: no dyspnea Cardiovascular: Additional Comments: lower chest pain/upper epigastric pain Gastrointestinal: + abdominal pain (epigastric to umbilica l region) and + nausea; no bloating, no vomiting and no change in bowel habits Genitourinary: no urinary complaints, no hematuria Physical Exam Physical Exam: awake/alert, no distress Respiratory: normal respiratory effort Cardiovascular: Rate/Rhythm: regular rate Gastrointestinal (Abdomen): Inspection/Auscultation: abdomen not distended, no abdominal surgical scar and no abdominal surgical incision Percussion/Palpation: + abdomen tender (ttp in the epigastric, mild in RUQ region) and abdomen soft; no guarding Results & Data Vital Signs (Past 12 Hours) Vital Signs Temp Pulse Pulse Resp BP BP Pulse Ox 11/04/23 09:35 72 22 122/60 97 11/04/23 08:54 77 11/04/23 08:35 11/04/23 08:25 98.1 F 88 18 143/65 H 98 O2 Del Method 11/04/23 09:35 Room Air 11/04/23 08:54 11/04/23 08:35 Room Air 11/04/23 08:25 Room Air Diagnostic Findings ABDOMEN AND PELVIS CT WITH IV CONTRAST CT DOSE: 932.4 mGy.cm HISTORY: upper abd pain TECHNIQUE: Multiaxial CT images of the abdomen and pelvis were performed following the use of intravenous contrast. A dose lowering technique was utilized adhering to the principles of ALARA. COMPARISON STUDY: None. FINDINGS: Patchy and linear densities at the lung bases favor dependent change/atelectasis. No pneumoperitoneum. No pneumatosis. No acute fractures identified. There is a 3 cm duodenal diverticulum. A 5 mm hypodense lesion within the right hepatic lobe on image 48 is too small to characterize but favors a cyst. There is an 8 mm hypodense focus within the posterior segment of the right hepatic lobe on image 35. There is also too small to characterize but may represent a benign lesion such as a hemangioma. The spleen, adrenal glands, and pancreas are unremarkable. Multiple small gallstones. There is pericholecystic edema. This raises the possibility of an acute cholecystitis. There is a horseshoe kidney. No ureteral stones. No hydronephrosis. There appear to be a few punctate nonobstructing stones within the left lower pole moiety on image 153. In addition, the left renal moiety contains 2 similar-appearing masses. These renal masses demonstrate soft tissue and macroscopic fatty components. Therefore, these favor angiomyolipomas. These masses measure 5.2 cm and 5.5 cm. The main portal vein is patent. No retroperitoneal lymphadenopathy. There is a left circumaortic renal vein. Normal caliber abdominal aorta. No pelvic lymphadenopathy or pelvic free fluid. The bladder is mildly distended. No bladder wall thickening. The uterus and bilateral adnexa are unremarkable. Colonic diverticulosis. No evidence for acute diverticulitis. Normal appendix. No bowel wall thickening or obstruction. IMPRESSION: 1. Multiple small gallstones with pericholecystic edema. This raises the possibility of acute cholecystitis. Surgical consultation recommended. 2. Horseshoe kidney. There are few punctate nonobstructing stones within the left renal moiety. No ureteral stones. No hydronephrosis. 3. There are 2 similar-appearing masses within the left renal moiety which contain macroscopic fat and therefore favor angiomyolipomas. Both these lesions measure greater than 5 cm in size. Therefore, follow-up nonemergent urology consultation recommended for possible resection as these lesions present a high risk of hemorrhage. 4. No bowel wall thickening or obstruction. 5. Normal appendix. 6. Additional findings as described above. ACT 112: Negative or not required by law. Electronically signed by: Justino La M.D. 11/04/2023 10:00 AM PG Care Time/CCT Total # of Minutes Spent Total Time Spent with Patient: Total time spent is greater than 50% in coordination of care (as documented) at patient's floor/unit and/or counseling patient: Coding Level of Care Code 20527 OFFICE CONSULT LVL M Diagnoses Abdominal pain R10.9
--- NOTE | 2023-11-04 12:03 | Ultrasound Report ---
ABDOMINAL ULTRASOUND, RIGHT UPPER QUADRANT HISTORY: eval acute king, elevated AST/AST. COMPARISON: Abdomen and pelvis CT 11/04/2023. FINDINGS: Pancreas: The pancreas demonstrates a normal echotexture. Liver: There is 9 mm cyst within the right hepatic lobe. The main portal vein is patent. Gallbladder: A few small gallstones. Mild gallbladder wall thickening and trace pericholecystic edema . The gallbladder wall measures approximately 5 mm. However, the technologist reported a negative son ographic Dobbins sign. CBD: Upper limits of normal measuring 6 mm. Right kidney: Horseshoe kidney again noted. No hydronephrosis. Partially visualized mass within the l eft lower pole moiety again noted which is better appreciated on the same day abdomen and pelvis CT. IMPRESSION: 1. A few small gallstones with gallbladder wall thickening and trace pericholecystic fluid. However, the technologist reported a negative sonographic Dobbins sign. Therefore, these findings are equivocal for acute cholecystitis and could be related to underlying hepatic pathology or a low protein state. Consider follow-up nuclear medicine HIDA scan if there is clinical concern for acute cholecystitis. 2. Horseshoe kidney. No hydronephrosis. A partially visualized mass within the left lower pole moiety is better appreciated on the same day abdomen and pelvis CT. ACT 112: Negative or not required by law. Electronically signed by: Justino La M.D. 11/04/2023 12:01 PM
--- NOTE | 2023-11-04 13:25 | History & Physical Report ---
Date of Service November 04, 2023 Assessment & Plan (1) Acute cholecystitis: Plan: Suspected on CT although clinically she does not have right upper quadrant pain, it is more in epigastric region Ultrasound was equivocal therefore defer to surgery but may need HIDA scan pen ding MRCP MRCP ordered to rule out choledocholithiasis In the meantime we will treat for acute cholecystitis with ceftriaxone, metronidazole, IV fluids, NPO Consult general surgery Alternative diagnoses include: Biliary colic Gastritis - famotidine 20 mg IV Lipase normal and imaging not consistent with acute pancreatitis Cardiac - initial troponin negative, will repeat (2) Elevated LFTs: Plan: If acute cholecystitis and choledocholithiasis ruled out may need to consider alternative diagnoses depending on trend (3) Renal angiomyolipoma: Plan: Noted incidentally on CT. I understand this is already been discussed between surgery and Dr. Arzate with plan to follow-up as an outpatient - will add to discharge instructions. (4) Horseshoe kidney: Plan DVT prophylaxis - deferred pending surgery consult Diet - n.p.o. pending surgery consult Disposition - observation to [facility] Admission and Anticipated Discharge Date Admission Date: November 04, 2023 History of Present Illness Chief Complaint: Abdominal pain Primary Care Provider: Anabel Ingram DO Ly Huynh is a 57-year-old female who presents to the ER with chest/epigastric pain that started in the middle of the night (around 12:30am). Initial severity pain is 10 out of 10, sharp pain, not completely gone away since, couldn't get any relief no water what she did, tums didn't help. From breast bone to epigastric area. Severity currently 2-4/10. No radiation to back. [place] nauseous and clammy with palpitations, but no vomiting. No shortness of breath. Never had a similar feeling previously. Did not eat out yesterday. x2 loose /watery bowel movements since this morning. No melena or hematochezia. Last colonoscopy in 2017 was unremarkable. No prior [place] or stroke. History of migraines. Takes meloxicam daily but missed medications this morning. No history of GERD, regular antacid use or acid taste in her mouth. Allergies Allergy/AdvReac Type Severity Reaction Status Date / Time Sulfa (Sulfonamide Allergy Intermediate UNKNOWN Verified 11/04/23 09:42 Antibiotics) Home Medications Medication Instructions Recorded Confirmed Type betamethasone dipropionate 0.05 % 1 applic topical BID PRN skin 04/11/22 11/04/23 Rx topical cream irritation #45 grams fremanezumab-vfrm 225 mg/1.5 mL 225 mg (1.5 mL) subcut MONTHLY #1 06/10/23 11/04/23 Rx subcutaneous syringe mL sumatriptan succinate 100 mg tablet 100 mg PO .COMPLEX PRN migraine 06/10/23 11/04/23 Rx headache #9 tabs meloxicam 15 mg tablet 15 mg PO DAILY #30 tabs 08/14/23 11/04/23 Rx Past Med/Surg History Medical History (Updated 11/04/23 @ 13:56 by Herb Muhammad MD) Horseshoe kidney Hyperlipidemia Arthritis of carpometacarpal (CMC) joint of left thumb De Quervain's tenosynovitis Migraines Surgical History S/P cataract extraction S/P tooth extraction Family History Father Hypertension Myocardial infarction Parkinson disease Sister Diabetes Brother Migraine headache Son Migraine headache Mother Cancer Uterine Sister Diabetes Denies family history of Ovarian cancer Prostate cancer Breast cancer Colorectal cancer Social History Smoking Status: Never smoker Second Hand Exposure: Yes; Do You Dip or Chew Tobacco: No; Hx Alcohol Use: Yes Alcohol Intake Frequency: Monthly or Less Alcohol Intake Frequency Comment: very social Hx Substance Use: No Preferred Language: Vincentian Communication Ability: Effective Visual Impairment: Partially Limited Hearing Ability: Normal Divisional Storekeeper Required: No Beliefs That Will Affect Care: None marital status: Current Living Situation: Spouse Current Living Situation Comment: 4 goats, 14 chickens, 2 dogs current occupational status: employed and retired current occupation: retired from [employer]; owns own business (2) now How many Children do You have: 2 Feels Safe at Home: Yes Childhood Exposure to Second-Hand Smoke: No Diet: regular Diet Comment: regular caffeine: Yes (iced tea) during the past year weight has: remained stable Dental Care, Regularly: Yes Physical Activity Frequency: Daily Seatbelt Use: always Sunscreen Use: Yes Review of Systems Review of Systems: All systems reviewed & are unremarkable except as noted in HPI & below Physical Exam Constitutional: WD/WN, vitals as above Eyes: + anicteric sclerae; normal pupil size ENMT: external ear and nose normal, oropharynx normal Respiratory: normal respiratory effort, lungs clear to auscultation Cardiovascular: RRR, no murmur, no edema Gastrointestinal (Abdomen): Inspection/Auscultation: abdomen normal to inspection; abdomen not distended Percussion/Palpation: + abdomen tender (epigastric) and abdomen soft; no guarding and abdomen not rigid Musculoskeletal: no cyanosis or clubbing, extremities motor strength 5/5 Skin: no rashes, warm and dry Neurologic: moves all extremities and awake; not confused Psychiatric: A+Ox3, euthymic affect Genitourinary: no CVA tenderness Results & Data Results & Data Vital Signs (Past 12 Hours) Vital Signs Temp Pulse Pulse Resp BP BP Pulse Ox 11/04/23 13:06 76 11/04/23 12:31 84 22 109/76 97 11/04/23 11:06 84 20 126/86 96 11/04/23 09:35 72 22 122/60 97 11/04/23 08:54 77 11/04/23 08:35 11/04/23 08:25 36.7 C 88 18 143/65 H 98 O2 Del Method 11/04/23 13:06 11/04/23 12:31 Room Air 11/04/23 11:06 Room Air 11/04/23 09:35 Room Air 11/04/23 08:54 11/04/23 08:35 Room Air 11/04/23 08:25 Room Air Laboratory Results Abnormal lab results 11/04/23 Range/Units 08:30 WBC 11.11 H (4.8-10.8) K/ul Neut # (Auto) 9.40 H (1.40-6.50) K/uL Lymph # (Auto) 1.01 L (1.20-3.40) K/uL BUN/Creatinine Ratio 30.0 H (10-20) Glucose 112 H (70-99(Fasting)) mg/dl AST 486 H (13-39) U/L ALT 283 H (7-52) U/L Diagnostic Findings XR chest 1V portable HISTORY: Chest pain, nonspecific COMPARISON: Chest 08/08/2016. FINDINGS: There are low lung volumes. No focal lung consolidations to suggest a pneumonia. No evidence for pulmonary edema. The cardiac silhouette remains top normal in size. No acute fractures. IMPRESSION: No acute process. ABDOMEN AND PELVIS CT WITH IV CONTRAST CT DOSE: 932.4 mGy.cm HISTORY: upper abd pain TECHNIQUE: Multiaxial CT images of the abdomen and pelvis were performed following the use of intravenous contrast. A dose lowering technique was utilized adhering to the principles of ALARA. COMPARISON STUDY: None. FINDINGS: Patchy and linear densities at the lung bases favor dependent change/atelectasis. No pneumoperitoneum. No pneumatosis. No acute fractures identified. There is a 3 cm duodenal diverticulum. A 5 mm hypodense lesion within the right hepatic lobe on image 48 is too small to characterize but favors a cyst. There is an 8 mm hypodense focus within the posterior segment of the right hepatic lobe on image 35. There is also too small to characterize but may represent a benign lesion such as a hemangioma. The spleen, adrenal glands, and pancreas are unremarkable. Multiple small gallstones. There is pericholecystic edema. This raises the possibility of an acute cholecystitis. There is a horseshoe kidney. No ureteral stones. No hydronephrosis. There appear to be a few punctate nonobstructing stones within the left lower pole moiety on image 153. In addition, the left renal moiety contains 2 similar-appearing masses. These renal masses demonstrate soft tissue and macroscopic fatty components. Therefore, these favor angiomyolipomas. These masses measure 5.2 cm and 5.5 cm. The main portal vein is patent. No retroperitoneal lymphadenopathy. There is a left circumaortic renal vein. Normal caliber abdominal aorta. No pelvic lymphadenopathy or pelvic free fluid. The bladder is mildly distended. No bladder wall thickening. The uterus and bilateral adnexa are unremarkable. Col onic diverticulosis. No evidence for acute diverticulitis. Normal appendix. No bowel wall thickening or obstruction. IMPRESSION: 1. Multiple small gallstones with pericholecystic edema. This raises the possibility of acute cholecystitis. Surgical consultation recommended. 2. Horseshoe kidney. There are few punctate nonobstructing stones within the left renal moiety. No ureteral stones. No hydronephrosis. 3. There are 2 similar-appearing masses within the left renal moiety which contain macroscopic fat and therefore favor angiomyolipomas. Both these lesions measure greater than 5 cm in size. Therefore, follow-up nonemergent urology consultation recommended for possible resection as these lesions present a high risk of hemorrhage. 4. No bowel wall thickening or obstruction. 5. Normal appendix. 6. Additional findings as described above. ABDOMINAL ULTRASOUND, RIGHT UPPER QUADRANT HISTORY: eval acute king, elevated AST/AST. COMPARISON: Abdomen and pelvis CT 11/04/2023. FINDINGS: Pancreas: The pancreas demonstrates a normal echotexture. Liver: There is 9 mm cyst within the right hepatic lobe. The main portal vein is patent. Gallbladder: A few small gallstones. Mild gallbladder wall thickening and trace pericholecystic edema. The gallbladder wall measures approximately 5 mm. However, the technologist reported a negative sonographic Dobbins sign. CBD: Upper limits of normal measuring 6 mm. Right kidney: Horseshoe kidney again noted. No hydronephrosis. Partially visualized mass within the left lower pole moiety again noted which is better appreciated on the same day abdomen and pelvis CT. IMPRESSION: 1. A few small gallstones with gallbladder wall thickening and trace pericholecystic fluid. However, the technologist reported a negative sonographic Dobbins sign. Therefore, these findings are equivocal for acute cholecystitis and could be related to underlying hepatic pathology or a low protein state. Consider follow-up nuclear medicine HIDA scan if there is clinical concern for acute cholecystitis. 2. Horseshoe kidney. No hydronephrosis. A partially visualized mass within the left lower pole moiety is better appreciated on the same day abdomen and pelvis CT. Medications Administered ER medications given: Ondansetron 4 mg IV Normal saline 1 L bolus ECG Rate (beats per minute): 85 Rhythm: normal sinus Findings: no acute ischemic change Comparison ECG Date: from (August 08, 2016) Change: no significant change Code Status & VTE Plan Code Status Full VTE Prophylaxis Plan VTE Prophylaxis will be ordered: No PG Care Time/CCT Total # of Minutes Spent Total Time Spent with Patient: Total time spent is greater than 50% in coordination of care (as documented) at patient's floor/unit and/or counseling patient: Coding Level of Care Code 55859 INT INP/OBS CARE 3/75MIN Diagnoses Acute cholecystitis K81.0 Elevated LFTs R79.89 Renal angiomyolipoma D17.71 Horseshoe kidney Q63.1
[2023-11-04] MEDS: SODIUM CHLORIDE 0.9% 1,000 ML IV ONE (14:05)
[2023-11-04] MEDS: FAMOTIDINE 20MG IV PUSH 20 MG/5 ML SYR IV STA (14:07)
[2023-11-04] MEDS: cefTRIAXone SODIUM 2,000 MG/50 ML BAG IV STA (14:34)
[2023-11-04] MEDS: PLASMA-LYTE A 1,000 ML IV SCH ×2 (15:16→23:03)
[2023-11-04] MEDS: metroNIDAZOLE 500 MG/100 ML BAG IV STA (17:04)
--- NOTE | 2023-11-04 18:03 | Magnetic Resonance Report ---
MRCP CLINICAL HISTORY: ?choledocholithiasis TECHNIQUE: Utilizing a 1.5 Petra magnet and dedicated coil, multiplanar, multiecho imaging of the [facility] er abdomen was performed utilizing heavily T2 weighted pulsing sequences without IV contrast. COMPARISON STUDY: CT of the abdomen and pelvis and right upper quadrant ultrasound performed earlier today. FINDINGS: There is no intra or extra hepatic biliary ductal dilatation. No common bile duct calculi a re identified. No hepatic lesions are identified with the exception of a small hepatic cyst. Multiple gallstones within gallbladder present. The gallbladder is mildly distended. There is mild gallbladde r wall thickening. Pancreas is unremarkable on unenhanced exam. The spleen and adrenal glands are als o unremarkable. Diverticulum of the second portion of duodenum is present. There is a horseshoe kidne y. Two fat-containing masses arising from the left renal moiety measure up to 5.5 cm. There is no hyd ronephrosis. There is no abdominal lymphadenopathy or ascites. Caliber and wall thickness of visualiz ed small and large bowel are normal. IMPRESSION: 1. No biliary ductal dilatation. No common bile duct calculi. 2. Cholelithiasis with mild gallbladder wall thickening. The findings raise the possibility of acute cholecystitis. 3. Horseshoe kidney. Two fat-containing masses arising from the left renal moiety, as described on CT performed earlier today. These suggest angiomyolipomas. Nonemergent Urology consultation is recommen ded ACT 112: Negative or not required by law. Electronically signed by: Wenceslao Estrada M.D. 11/04/2023 6:00 PM
[2023-11-04] MEDS ORDERED: HYDROmorphone INJ 0.5 MG/0.5 ML SYR IV PRN ×2 (18:51)
[2023-11-04] MEDS ORDERED: ONDANSETRON INJ 2 MG/ML 2 ML VIAL IV PRN (20:30)
[2023-11-04] MEDS: metroNIDAZOLE 500 MG/100 ML BAG IV SCH (23:04)
[2023-11-05 03:46] LABS: A calco-baum cmplx NotReported Not Detected (NotDetected); Bact fragilis Not Reported Not Detected (NotDetected); Blood Culture Id Panel See PCR Comment (NotDetected); C auris Not Reported Not Detected (NotDetected); CTX-M Resistant Gene Not Detected (NotDetected); Calbicans Not Reported Not Detected (NotDetected); Candida glabrata Not Reported Not Detected (NotDetected); Candida krusei Not Reported Not Detected (NotDetected); Cneoformans/gatti Not Reported Not Detected (NotDetected); Cparapsilosis Not Reported Not Detected (NotDetected); E cloacae compx Not Reported Not Detected (NotDetected); Efaecalis Not Reported Not Detected (NotDetected); Efaecium Not Reported Not Detected (NotDetected); Enterobacterales DETECTED (NotDetected); Enterobacterales Not Reported DETECTED (NotDetected); Escherichia coli Not Reported DETECTED (NotDetected); H influenzae Not Reported Not Detected (NotDetected); IMP Resistant Gene Not Detected (NotDetected); K aerogenes Not Reported Not Detected (NotDetected); KPC Resistant Gene Not Detected (NotDetected); Koxytoca Not Reported Not Detected (NotDetected); Kpneumoniae grp Not Reported Not Detected (NotDetected); Lmonocyt Not Reported Not Detected (NotDetected); N meningitidis Not Reported Not Detected (NotDetected); NDM Resistant Gene Not Detected (NotDetected); OXA 48 Like Resistant Gene Not Detected (NotDetected); P aeruginosa Not Reported Not Detected (NotDetected); Proteus spp Not Reported Not Detected (NotDetected); Salmonella spp Not Reported Not Detected (NotDetected); Smarcescens Not Reported Not Detected (NotDetected); Staph lugdunensis Not Reported Not Detected (NotDetected); Staph spp. Not Reported Not Detected (NotDetected); Staphaureus Not Reported Not Detected (NotDetected); Staphepi Not Reported Not Detected (NotDetected); Stenmaltophilia Not Reported Not Detected (NotDetected); Strep agal(GrpB) Not Reported Not Detected (NotDetected); Strep pneum Not Reported Not Detected (NotDetected); Strep pyog (GrpA) Not Reported Not Detected (NotDetected); Strep spp Not Reported Not Detected (NotDetected); VIM Resistant Gene Not Detected (NotDetected); mcr-1 Colistin Resistant Gene Not Detected (NotDetected)
--- NOTE | 2023-11-05 04:25 | Electrocardiogram Report ---
Test Reason : Blood Pressure : / mmHG Vent. Rate : 085 BPM Atrial Rate : 085 BPM P-R Int : 162 ms QRS Dur : 074 ms QT Int : 356 ms P-R-T Axes : 034 012 053 degrees QTc Int : 423 ms Normal sinus rhythm Normal ECG When compared with ECG of 08-AUG-2016 09:22, No significant change was found Confirmed by Sean Meyers ([id number]) on 11/05/2023 4:24:52 AM Referred By: REFERRED SELF Confirmed By:Sean Meyers
[2023-11-05 06:19] LABS: Prothrombin Time 10.6 Seconds (9.0-12.0)
[2023-11-05 06:22] LABS: Basophils # (auto) 0.04 K/uL (0.00-0.20); Basophils % (auto) 0.8 %; Eosinophils # (auto) 0.14 K/uL (0.00-0.50); Eosinophils % (auto) 2.9 %; Hematocrit (blood only) 41.3 % (37.0-47.0); Hemoglobin 13.5 g/dl (12.0-16.0); Immature Granulocytes # (auto) 0.02 K/uL (0.01-0.20); Immature Granulocytes % (auto) 0.4 %; Lymphocytes # (auto) 1.09 K/uL (1.20-3.40); Lymphocytes % (auto) 22.2 %; Mean Corpuscular Hemoglobin 29.9 pg (25.0-34.0); Mean Corpuscular Hgb Conc 32.7 g/dL (32.0-36.0); Mean Corpuscular Volume 91.4 fL (80.0-100.0); Mean Platelet Volume 9.2 fL (9.4-12.4); Monocytes % (auto) 8.1 %; Neutrophils # (auto) 3.22 K/uL (1.40-6.50); Neutrophils % (auto) 65.6 %; Platelet Count 203 K/uL (130-400); RDW Coefficient of Variation 12.5 % (11.5-14.5); RDW Standard Deviation 41.6 fL (36.4-46.3); Red Blood Count 4.52 M/uL (4.20-5.40); White Blood Count 4.91 K/ul (4.8-10.8)
[2023-11-05 06:52] LABS: Albumin Level 3.7 gm/dl (3.4-5.0); Bilirubin Direct 0.2 mg/dl (0-0.2); Bilirubin,Total 0.7 mg/dl (0.2-1.0); Calcium 8.2 mg/dl (8.6-10.3); Creatinine Clr Calc Pharmacy 76.4 ml/min; Est GFR (African American) 103.3 ml/min; Est GFR (Non-African American) 89.1 ml/min; Potassium 3.9 mmol/L (3.5-5.1); Total Protein 5.9 gm/dl (6.0-8.3)
[2023-11-05] MEDS: ACETAMINOPHEN 1,000 MG/100 ML VIAL IV PRN (07:30)
[2023-11-05] MEDS: FAMOTIDINE 20MG IV PUSH 20 MG/5 ML SYR IV SCH (08:46)
--- NOTE | 2023-11-05 11:06 | Surgery Progress Note ---
Date of Service November 05, 2023 Assessment & Plan (1) Acute cholecystitis: Plan: cholelithiasis, acute cholecystitis, likely passed small stone. plan for robotic assisted laparoscopic cholecystectomy with possible cholangiogram risks discussed to include but not limited to bleeding, infection, retained stone, bile leak, open surgery, damage to surrounding structures including bile duct, need for future or more extensive surgery, failure to treat symptoms, and risks of anesthesia. (2) Elevated LFTs: (3) Bacteremia: Plan: abx per medicine Admission and Anticipated Discharge Date Admission Date: November 04, 2023 Subjective abd pain, cholelithiasis w/ suspected cholecystitis, dilated cbd and ast/alt abnormality. MRCP last night no choledocholithiasis. AST/ALT downtrending. Blood cx gram - bacilli. feels better. Physical Exam Constitutional: WD/WN, vitals as above + obese Respiratory: normal respiratory effort, lungs clear to auscultation Cardiovascular: RRR, no murmur, no edema Gastrointestinal (Abdomen): Percussion/Palpation: + abdomen tender (mild epigastric/ruq ttp) and abdomen soft; no guarding and abdomen not rigid Results & Data Vital Signs (Past 12 Hours) Vital Signs Temp Pulse Resp BP Pulse Ox O2 Del Method 11/05/23 07:08 36.8 C 73 16 102/66 95 Room Air Diagnostic Findings Laboratory Results WBC 4.91 K/ul (4.8-10.8) D 11/05/23 05:53 RBC 4.52 M/uL (4.20-5.40) 11/05/23 05:53 Hgb 13.5 g/dl (12.0-16.0) 11/05/23 05:53 Hct 41.3 % (37.0-47.0) 11/05/23 05:53 MCV 91.4 fL (80.0-100.0) 11/05/23 05:53 MCH 29.9 pg (25.0-34.0) 11/05/23 05:53 MCHC 32.7 g/dL (32.0-36.0) 11/05/23 05:53 RDW Std Deviation 41.6 fL (36.4-46.3) 11/05/23 05:53 RDW Coeff of Sissy 12.5 % (11.5-14.5) 11/05/23 05:53 Plt Count 203 K/uL (130-400) 11/05/23 05:53 MPV 9.2 fL (9.4-12.4) L 11/05/23 05:53 Immature Gran % (Auto) 0.4 % 11/05/23 05:53 Neut % (Auto) 65.6 % 11/05/23 05:53 Lymph % (Auto) 22.2 % 11/05/23 05:53 Maries % (Auto) 8.1 % 11/05/23 05:53 Eos % (Auto) 2.9 % 11/05/23 05:53 Baso % (Auto) 0.8 % 11/05/23 05:53 Neut # (Auto) 3.22 K/uL (1.40-6.50) 11/05/23 05:53 Lymph # (Auto) 1.09 K/uL (1.20-3.40) L 11/05/23 05:53 Maries # (Auto) 0.40 K/uL (0.11-0.59) 11/05/23 05:53 Eos # (Auto) 0.14 K/uL (0.00-0.50) 11/05/23 05:53 Baso # (Auto) 0.04 K/uL (0.00-0.20) 11/05/23 05:53 Immature Gran # (Auto) 0.02 K/uL (0.01-0.20) 11/05/23 05:53 PT 10.6 Seconds (9.0-12.0) 11/05/23 05:53 INR 1.0 (0.9-1.1) 11/05/23 05:53 Sodium 142 mmol/L (136-145) 11/05/23 05:53 Potassium 3.9 mmol/L (3.5-5.1) 11/05/23 05:53 Chloride 106 mmol/L (98-107) 11/05/23 05:53 Carbon Dioxide 29 mmol/L (21-32) 11/05/23 05:53 Anion Gap 7 (3-11) 11/05/23 05:53 BUN 12 mg/dl (6-23) 11/05/23 05:53 Creatinine 0.75 mg/dl (0.6-1.2) 11/05/23 05:53 Est Cr Clr Drug Dosing 76.4 ml/min 11/05/23 05:53 Est GFR ( Amer) 103.3 ml/min 11/05/23 05:53 Est GFR (Non-Af Amer) 89.1 ml/min 11/05/23 05:53 BUN/Creatinine Ratio 16.0 (10-20) 11/05/23 05:53 Glucose 102 mg/dl (70-99(Fasting)) H 11/05/23 05:53 Calcium 8.2 mg/dl (8.6-10.3) L 11/05/23 05:53 Total Bilirubin 0.7 mg/dl (0.2-1.0) 11/05/23 05:53 Direct Bilirubin 0.2 mg/dl (0-0.2) 11/05/23 05:53 AST 177 U/L (13-39) H 11/05/23 05:53 ALT 342 U/L (7-52) H 11/05/23 05:53 Alkaline Phosphatase 95 U/L (34-104) 11/05/23 05:53 Troponin I High Sens 3.5 pg/ml (0-14) 11/04/23 14:31 Total Protein 5.9 gm/dl (6.0-8.3) L 11/05/23 05:53 Albumin 3.7 gm/dl (3.4-5.0) 11/05/23 05:53 Globulin 2.5 gm/dl (2.5-4.0) 11/04/23 08:30 Albumin/Globulin Ratio 1.8 (0.9-2) 11/04/23 08:30 Lipase 17 U/L (11-82) 11/04/23 08:30 Enterobacterales (PCR) DETECTED (NotDetected) A 11/04/23 14:31 E. coli (PCR) DETECTED (NotDetected) A 11/04/23 14:31 mcr-1 Colistin Res Gene PCR Not Detected (NotDetected) 11/04/23 14:31 blaIMP Car res Gene PCR Not Detected (NotDetected) 11/04/23 14:31 KPC-Carbap Res Gene PCR Not Detected (NotDetected) 11/04/23 14:31 blaNDM Car Res Gene PCR Not Detected (NotDetected) 11/04/23 14:31 OXA-48 Carbapenem Resis Gene (PCR) Not Detected (NotDetected) 11/04/23 14:31 blaVIM Car Res Gene PCR Not Detected (NotDetected) 11/04/23 14:31 CTX-M Gene Resistance (PCR) Not Detected (NotDetected) 11/04/23 14:31 Bld Cult ID Panel PCR See PCR Comment (NotDetected) 11/04/23 14:31 Impressions Chest X-Ray 11/04/23 08:25 XR chest 1V portable HISTORY: Chest pain, nonspecific COMPARISON: Chest 08/08/2016. FINDINGS: There are low lung volumes. No focal lung consolidations to suggest a pneumonia. No evidence for pulmonary edema. The cardiac silhouette remains top normal in size. No acute fractures. IMPRESSION: No acute process. ACT 112: Negative or not required by law. Electronically signed by: Justino La M.D. 11/04/2023 8:59 AM Abdomen/Pelvis CT 11/04/23 09:[address] WITH IV CONTRAST CT DOSE: 932.4 mGy.cm HISTORY: upper abd pain TECHNIQUE: Multiaxial CT images of the abdomen and pelvis were performed following the use of intravenous contrast. A dose lowering technique was utilized adhering to the principles of ALARA. COMPARISON STUDY: None. FINDINGS: Patchy and linear densities at the lung bases favor dependent change/atelectasis. No pneumoperitoneum. No pneumatosis. No acute fractures identified. There is a 3 cm duodenal diverticulum. A 5 mm hypodense lesion within the right hepatic lobe on image 48 is too small to characterize but favors a cyst. There is an 8 mm hypodense focus within the posterior segment of the right hepatic lobe on image 35. There is also too small to characterize but may represent a benign lesion such as a hemangioma. The spleen, adrenal glands, and pancreas are unremarkable. Multiple small gallstones. There is pericholecystic edema. This raises the possibility of an acute cholecystitis. T here is a horseshoe kidney. No ureteral stones. No hydronephrosis. There appear to be a few punctate nonobstructing stones within the left lower pole moiety on image 153. In addition, the left renal moiety contains 2 similar-appearing masses. These renal masses demonstrate soft tissue and macroscopic fatty components. Therefore, these favor angiomyolipomas. These masses measure 5.2 cm and 5.5 cm. The main portal vein is patent. No retroperitoneal lymphadenopathy. There is a left circumaortic renal vein. Normal caliber abdominal aorta. No pelvic lymphadenopathy or pelvic free fluid. The bladder is mildly distended. No bladder wall thickening. The uterus and bilateral adnexa are unremarkable. Colonic diverticulosis. No evidence for acute diverticulitis. Normal appendix. No bowel wall thickening or obstruction. IMPRESSION: 1. Multiple small gallstones with pericholecystic edema. This raises the possibility of acute cholecystitis. Surgical consultation recommended. 2. Horseshoe kidney. There are few punctate nonobstructing stones within the left renal moiety. No ureteral stones. No hydronephrosis. 3. There are 2 similar-appearing masses within the left renal moiety which contain macroscopic fat and therefore favor angiomyolipomas. Both these lesions measure greater than 5 cm in size. Therefore, follow-up nonemergent urology consultation recommended for possible resection as these lesions present a high risk of hemorrhage. 4. No bowel wall thickening or obstruction. 5. Normal appendix. 6. Additional findings as described above. ACT 112: Negative or not required by law. Electronically signed by: Justino La M.D. 11/04/2023 10:00 AM Liver Ultrasound 11/04/23 10:51 ABDOMINAL ULTRASOUND, RIGHT UPPER QUADRANT HISTORY: eval acute king, elevated AST/AST. COMPARISON: Abdomen and pelvis CT 11/04/2023. FINDINGS: Pancreas: The pancreas demonstrates a normal echotexture. Liver: There is 9 mm cyst within the right hepatic lobe. The main portal vein is patent. Gallbladder: A few small gallstones. Mild gallbladder wall thickening and trace pericholecystic edema. The gallbladder wall measures approximately 5 mm. However, the technologist reported a negative sonographic Dobbins sign. CBD: Upper limits of normal measuring 6 mm. Right kidney: Horseshoe kidney again noted. No hydronephrosis. Partially visualized mass within the left lower pole moiety again noted which is better appreciated on the same day abdomen and pelvis CT. IMPRESSION: 1. A few small gallstones with gallbladder wall thickening and trace per icholecystic fluid. However, the technologist reported a negative sonographic Dobbins sign. Therefore, these findings are equivocal for acute cholecystitis and could be related to underlying hepatic pathology or a low protein state. Consider follow-up nuclear medicine HIDA scan if there is clinical concern for acute cholecystitis. 2. Horseshoe kidney. No hydronephrosis. A partially visualized mass within the left lower pole moiety is better appreciated on the same day abdomen and pelvis CT. ACT 112: Negative or not required by law. Electronically signed by: Justino La M.D. 11/04/2023 12:01 PM Cholangiopancreatography MRI 11/04/23 13:19 MRCP CLINICAL HISTORY: ?choledocholithiasis TECHNIQUE: Utilizing a 1.5 Petra magnet and dedicated coil, multiplanar, multiecho imaging of the upper abdomen was performed utilizing heavily T2 weighted pulsing sequences without IV contrast. COMPARISON STUDY: CT of the abdomen and pelvis and right upper quadrant ultrasound performed earlier today. FINDINGS: There is no intra or extra hepatic biliary ductal dilatation. No common bile duct calculi are identified. No hepatic lesions are identified with the exception of a small hepatic cyst. Multiple gallstones within gallbladder present. The gallbladder is mildly distended. There is mild gallbladder wall thickening. Pancreas is unremarkable on unenhanced exam. The spleen and adrenal glands are also unremarkable. Diverticulum of the second portion of duodenum is present. There is a horseshoe kidney. Two fat-containing masses arising from the left renal moiety measure up to 5.5 cm. There is no hydronephrosis. There is no abdominal lymphadenopathy or ascites. Caliber and wall thickness of visualized small and large bowel are normal. IMPRESSION: 1. No biliary ductal dilatation. No common bile duct calculi. 2. Cholelithiasis with mild gallbladder wall thickening. The findings raise the possibility of acute cholecystitis. 3. Horseshoe kidney. Two fat-containing masses arising from the left renal moiety, as described on CT performed earlier today. These suggest angiomyolipomas. Nonemergent Urology consultation is recommended ACT 112: Negative or not required by law. Electronically signed by: Wenceslao Estrada M.D. 11/04/2023 6:00 PM PG Care Time/CCT Total # of Minutes Spent Total Time Spent with Patient: Total time spent is greater than 50% in coordination of care (as documented) at patient's floor/unit and/or counseling patient: Coding Level of Care Code 86969 SUB INP/OBS CARE 2/35MIN Diagnoses Acute cholecystitis K81.0 Elevated LFTs R79.89 Bacteremia R78.81
--- NOTE | 2023-11-05 11:36 | Anesthesiology Consultation ---
Date of Service November 05, 2023 Assessment & Plan Consults Requested medical & cardiac Pulmonary History Surgery Operation Date: 11/05/23 09:40 Proposed Procedures p Robotic Laparoscopic Cholecystectomy - Joel Rivas DO, FACS Height/Weight Height: 5 ft 1 in Weight: 72.8 kg Allergies Allergy/AdvReac Type Severity Reaction Status Date / Time Sulfa (Sulfonamide Allergy Intermediate UNKNOWN Verified 11/04/23 09:42 Antibiotics) Medications Home Medications Medication Instructions Recorded Confirmed Last Taken betamethasone dipropionate 0.05 % 1 applic topical BID PRN skin 04/11/22 11/04/23 Unknown topical cream irritation #45 grams fremanezumab-vfrm 225 mg/1.5 mL 225 mg (1.5 mL) subcut MONTHLY #1 06/10/23 11/04/23 Unknown subcutaneous syringe mL sumatriptan succinate 100 mg tablet 100 mg PO .COMPLEX PRN migraine 06/10/23 11/04/23 Unknown headache #9 tabs meloxicam 15 mg tablet 15 mg PO DAILY #30 tabs 08/14/23 11/04/23 Unknown Active Medications Generic Name Dose Route Start Last Admin Trade Name Freq PRN Reason Stop Dose Admin Acetaminophen 1,000 mg in 100 mls @ 400 mls/hr 11/04/23 18:51 11/05/23 07:50 Ofirmev IV 11/07/23 18:50 Infused Q8H PRN Infusion Pain or fever Metronidazole 500 mg in 100 mls @ 100 mls/hr 11/05/23 00:00 11/05/23 09:49 Flagyl IV 11/15/23 00:00 Infused Q8H JAN Infusion Protocol Famotidine 20 mg in 5 mls @ 2.5 mls/min 11/05/23 09:00 11/05/23 08:46 Pepcid 20mg Iv Push IV 12/05/23 08:59 2.5 mls/min QAM JAN Administration Parenteral Electrolytes 1,000 mls @ 125 mls/hr 11/04/23 21:45 11/05/23 05:11 Plasma-Lyte A Ph 7.4 IV 11/05/23 13:44 125 mls/hr .Q8H JAN Administration NPO Date Last Intake of Fluids: 11/04/23 Time Last Intake of Fluids: 18:00 Last Intake of Fluids Comment: NPO at midnight. Date Last Intake of Solids: 11/04/23 Time Last Intake of Solids: 21:30 Past Medical History Medical History (Updated 11/05/23 @ 11:05 by Joel Rivas DO, FACS) Bacteremia Horseshoe kidney Hyperlipidemia Arthritis of carpometacarpal (CMC) joint of left thumb De Quervain's tenosynovitis Migraines Past Family History Family History Father Hypertension Myocardial infarction Parkinson disease Sister Diabetes Brother Migraine headache Son Migraine headache Mother Cancer Uterine Sister Diabetes Denies family history of Ovarian cancer Prostate cancer Breast cancer Colorectal cancer Past Surgical History Surgical History S/P cataract extraction S/P tooth extraction Social History Smoking Status: Never smoker Do You Dip or Chew Tobacco: No Hx Alcohol Use: No Hx Substance Use: No Physical Exam Vital Signs Last Vital Signs Temp 36.8 C 11/05/23 11:22 Pulse 77 11/05/23 11:22 Resp 18 11/05/23 11:22 BP 134/77 11/05/23 11:22 Pulse Ox 97 11/05/23 11:22 O2 Del Method Room Air 11/05/23 11:22 Testing Laboratory Results 11/05/23 05:53 11/05/23 05:53 PT 10.6 Seconds (9.0-12.0) 11/05/23 05:53 INR 1.0 (0.9-1.1) 11/05/23 05:53 11/04/23 14:31 Aerobic Blood Culture - Preliminary Blood Gram negative bacilli 11/04/23 14:31 Aerobic Blood Culture - Preliminary Blood Gram negative bacilli Anaerobic Blood Culture - Preliminary Gram negative bacilli
[2023-11-05] MEDS: SODIUM CHLORIDE 0.9% 1,000 ML IV SCH (11:37)
[2023-11-05] MEDS ORDERED: ePHEDrine sulfate 50 MG/ML AMP IV PRN (11:38)
[2023-11-05] MEDS ORDERED: HYDROmorphone INJ 2 MG/ML SYR/VIAL IV PRN (11:38)
[2023-11-05] MEDS ORDERED: ATROPINE SULFATE 0.1 MG/ML 10ML SYR IV PRN (11:38)
[2023-11-05] MEDS ORDERED: DEXAMETHASONE SOD INJ 4 MG/ML VIAL ONE (11:56)
[2023-11-05] MEDS ORDERED: diphenhydrAMINE 50 MG/ML VIAL ONE (11:56)
[2023-11-05] MEDS ORDERED: GLYCOPYRROLATE 0.2 MG/ML VIAL ONE (11:56)
[2023-11-05] MEDS ORDERED: fentaNYL citrate PF 100 MCG/2 ML VIAL ONE ×2 (11:56→13:06)
[2023-11-05] MEDS ORDERED: ROCURONIUM BROMIDE 10 MG/ML 5 ML VIAL IV ONE (11:56)
[2023-11-05] MEDS ORDERED: LIDOCAINE 2% 2 ML VIAL/AMP(20MG/ML) INFIL ONE (11:56)
[2023-11-05] MEDS ORDERED: ONDANSETRON INJ 2 MG/ML 2 ML VIAL ONE (11:56)
[2023-11-05] MEDS ORDERED: MIDAZOLAM HCL 1 MG/ML 2ML VIAL ONE (11:56)
[2023-11-05] MEDS ORDERED: PROPOFOL IV EMULSION 10 MG/ML 20 ML VIAL IV ONE ×2 (11:56→13:05)
[2023-11-05] MEDS: INDOCYANINE GREEN 25 MG VIAL INJ ONE (12:07)
[2023-11-05] MEDS: CLINDAMYCIN 900 MG/D5W 50 ML BAG IV ONE (12:44)
[2023-11-05] MEDS ORDERED: PHENYLEPHRINE 100MCG/ML 10ML SYR IV ONE (12:57)
[2023-11-05] MEDS: cefTRIAXone SODIUM 2,000 MG/50 ML BAG IV SCH (13:01)
[2023-11-05] MEDS ORDERED: SUGAMMADEX SODIUM 200 MG/2 ML VIAL IV ONE (13:05)
[2023-11-05] MEDS ORDERED: KETOROLAC 30 MG/ML VIAL ONE (13:05)
[2023-11-05] MEDS: BUPIVACAINE 0.5 % 5 MG/1 ML MPF 30ML VIAL ONE (13:17)
--- NOTE | 2023-11-05 13:20 | Operative Report ---
PG Post Operative Report Pre & Post Diagnosis Operation Date: 11/05/23 09:40 Pre-Op Diagnosis: Acute cholecystitis Post-Op Diagnosis: Acute cholecystitis I identified the patient and participated in the time-out.: Yes Procedure Operation Date: 11/05/23 09:40 Actual Procedures p Robotic Laparoscopic Cholecystectomy(Not Applicable) - Joel Rivas DO, FACS Surgeon Joel Rivas DO, FACS Dry Cure Worker Rhonda Starks Estimated Blood Loss 5 Findings Consistent with Post-Op Diagnosis Mild to moderate acute cholecystitis, critical view of safety obtained, cystic duct and artery doubly clipped and divided Specimens Gallbladder Anesthesia Type General Complications none Disposition Accompanied Patient To Recovery: No Disposition: Recovery Room Indications 57-year-old female presented with signs symptoms of acute cholecystitis with elevated AST and ALT and dilated common bile duct. MRCP showed no evidence of choledocholithiasis, AST and ALT down trended morning surgery. Plan for robotic laparoscopic cholecystectomy. The risks of the procedure were discussed, all questions were answered, and the patient agreed to proceed with surgery as planned. Description of Procedure The patient was properly identified, consented, and taken to the operating room where she was placed in the supine position. 2.5 mg of indocyanine green were administered IV approximately 45 min prior to the surgery. General endotracheal anesthesia was induced. SCDs and a safety belt were placed. Preoperative antibiotics were administered. The patient's abdomen was prepped and draped in the standard sterile fashion. A surgical timeout was performed and all parties were in agreement that this was the correct patient and procedure to be per formed and we continued as planned. An incision was made just above the umbilicus and to the right of midline. Veress needle was inserted and saline drop test confirmed entry to the abdomen. The abdomen was insufflated with carbon dioxide which the patient tolerated incident. Veress needle was removed and the abdomen is entered using the Optiview technique and a 5 mm camera. The introducer was removed and the abdomen inspected. No damage from initial trocar placement or Veress needle placement was identified. There were no significant abnormalities to the 4 quadrants of the abdomen. 8 mm robotic ports were then placed on the left and right. An additional 5 mm volunteer assistant port was placed in the lateral right subcostal position. The patient was placed in reverse Trendelenburg position and rotated towards the left. The robot was then docked and the camera and robotic instruments were inserted. The gallbladder was moderately and acutely inflamed. The dome of the gallbladder was grasped by the volunteer assistant and retracted towards the left upper quadrant and the infundibulum was retracted toward the right lower quadrant revealing Calot's triangle. Peritoneal attachments were taken down with electrocautery and blunt dissection. The cystic duct and artery were circumferentially dissected. A window of safety was obtained showing the cystic duct entering the gallbladder with no aberrant structures noted. We were able to identify the cystic duct utilizing the ICG. The cystic duct and artery were doubly clipped and divided. The gallbladder was then lifted off the gallbladder fossa with electrocautery. There was a small amount of bile that was spilled but no stones. The right upper quadrant was irrigated and hemostasis was found to be good. The gallbladder was placed in an Endo Catch bag and removed through the one of the port sites. The instruments were removed and the robot was undocked. The trochars were removed and the abdomen was allowed to collapse. The skin of all ports was closed with 4-0 Monocryl subcuticular sutures. Dermabond was placed over the wounds. The patient was extubated in the operating room and taken to the PACU where she recovered without apparent incident. All sponge, instrument and needle counts were correct at the conclusion of the procedure. The patient tolerated the procedure well. The physician's volunteer assistant was present and scrubbed for the entirety of the case and was essential in positioning the patient, prepping and draping, retraction and exposure, driving the laparoscope, exchange of the robotic instruments removal of the gallbladder, closure of the incisions, and placement of the dressings. I attest to the content of the Intraoperative Record and any orders documented therein. Any exceptions are noted below.
[2023-11-05] MEDS: DROPERIDOL 5 MG/2 ML VIAL IV PRN (13:52)
[2023-11-05] MEDS ORDERED: ACETAMINOPHEN 325 MG TAB PO PRN (14:59)
[2023-11-05] MEDS ORDERED: oxyCODONE HCL IR 5 MG TAB (IMMEDIATE RELEASE) PO PRN ×2 (14:59)
--- NOTE | 2023-11-05 15:00 | Anesthesiology Progress Note ---
Date of Service November 05, 2023 Anesthesia Post Procedure Vital Signs Vital Signs: Temp Pulse Pulse Pulse Resp BP BP 11/05/23 14:55 36.4 C L 78 14 117/71 11/05/23 14:20 36.4 C L 62 18 117/62 11/05/23 14:10 65 12 125/67 11/05/23 14:00 68 14 117/58 L 11/05/23 13:50 76 16 126/83 11/05/23 13:40 36 C L 76 16 149/79 H 11/05/23 11:22 36.8 C 77 18 134/77 11/05/23 07:08 36.8 C 73 16 102/66 11/04/23 19:41 36.8 C 68 18 104/70 11/04/23 15:01 36.9 C 73 16 130/82 Pulse Ox O2 Del Method O2 Flow Rate 11/05/23 14:55 96 Room Air 11/05/23 14:20 95 Room Air 11/05/23 14:10 94 Room Air 11/05/23 14:00 95 Room Air 11/05/23 13:50 96 Room Air 11/05/23 13:40 100 Oxymask 6 11/05/23 11:22 97 Room Air 11/05/23 07:08 95 Room Air 11/04/23 19:41 96 Room Air 11/04/23 15:01 98 Room Air Pain Intensity Abdomen: Pain Intensity: 5 Head: Pain Intensity: 0 Transfer of Care Handoff Completed per policy Notes Mental Status: alert / awake / arousable and participated in evaluation Nausea / Vomiting: adequately controlled Pain: adequately controlled Airway Patency, RR, SpO2: stable & adequate BP & HR: stable & adequate Hydration State: stable & adequate Anesthetic Complications: no major complications apparent and Pt Satisfied with anesthetic care
--- NOTE | 2023-11-05 16:34 | Hospitalist Progress Note ---
Date of Service November 05, 2023 Assessment & Plan (1) Acute cholecystitis: Plan: Suspected on CT although clinically she does not have right upper quadrant pain, it is more in epigastric region Ultrasound was equivocal therefore, consulted surgery, plan for MRCP Lipase WNL. Troponin neg x 2 blood cultures: 3/4 positive for gram-negative bacilli, bio fire with E. coli - suspect gallbladder as a source. Although UA was not collected on admission. Will collect - noting after multiple abx doses Continue antibiotics: Metronidazole and ciprofloxacin - patient was given ceftriaxone on 11/03 and had a reaction with flushing and emesis x 1. Symptoms resolved spontaneously. no elevation of eosinophils. Suspect adverse reaction and not true allergy - recommend outpatient nonurgent allergy follow up Consult general surgery - S/P antibiotics laparoscopic cholecystectomy with Dr. Rivas on 11/04 - clear liquid, low-fat diet - advance as tolerated (2) Elevated LFTs: Plan: suspect secondary to cholecystitis now downtrending AM CMP (3) Renal angiomyolipoma: Plan: Noted incidentally on CT. Documented that this was discussed between surgery and Dr. Arzate with plan to follow-up as an outpatient - will add to discharge instructions. (4) Horseshoe kidney: Plan: Incidental finding on CT scan Plan DVT prophylaxis - will hold chemical proh with recent surgery Disposition - continued inpatient stay Admission and Anticipated Discharge Date Admission Date: November 04, 2023 Supervising Physician Co-Signing Physician Notes Attending Attestation - Chart reviewed, care plan d/w KEAGAN Selby. I agree w/ the gayle components of her documentation. Appreciate gen surg assistance for acute cholecystitis. Herb De Los Santos MD Subjective patient evaluated after OR procedure, feeling okay and alittle tired. not nauseous . No abdominal pain does not endorse any UTI symptoms prior to admission states after does of CTX yesterday immediately became flush and vomited once - but then symptoms improved. states she is taken penicillins before. Is unsure if she is ever had Keflex. Review of Systems Review of Systems: All systems reviewed & are unremarkable except as noted in Subjective Physical Exam Physical Exam: General: NAD, VS as above Resp: normal respiratory effort, lungs clear to auscultation CV: RRR, no murmur, Abd: Incision without signs of infection Extremities: Moves all extremities, no edema Results & Data Results & Data Vital Signs (Past 12 Hours) Vital Signs Temp Pulse Pulse Pulse Resp BP Pulse Ox 11/05/23 15:33 66 18 113/72 94 11/05/23 15:00 73 16 118/74 94 11/05/23 14:55 36.4 C L 78 14 117/71 96 11/05/23 14:20 36.4 C L 62 18 117/62 95 11/05/23 14:10 65 12 125/67 94 11/05/23 14:00 68 14 117/58 L 95 11/05/23 13:50 76 16 126/83 96 11/05/23 13:40 36 C L 76 16 149/79 H 100 11/05/23 11:22 36.8 C 77 18 134/77 97 11/05/23 07:08 36.8 C 73 16 102/66 95 O2 Del Method O2 Flow Rate 11/05/23 15:33 Room Air 11/05/23 15:00 Room Air 11/05/23 14:55 Room Air 11/05/23 14:20 Room Air 11/05/23 14:10 Room Air 11/05/23 14:00 Room Air 11/05/23 13:50 Room Air 11/05/23 13:40 Oxymask 6 11/05/23 11:22 Room Air 11/05/23 07:08 Room Air Laboratory Results CBC, chemistry, blood cultures reviewed PG Care Time/CCT Total # of Minutes Spent Total Time Spent with Patient: Total time spent is greater than 50% in coordination of care (as documented) at patient's floor/unit and/or counseling patient: Coding Level of Care Code 36397 SUB INP/OBS CARE 3/50MIN Diagnoses Acute cholecystitis K81.0 Elevated LFTs R79.89 Renal angiomyolipoma D17.71 Horseshoe kidney Q63.1
[2023-11-05] MEDS: CIPROFLOXACIN / D5W 400 MG/200 ML BAG IV SCH (17:06)
[2023-11-05 18:12] LABS: Appearance Urine Clear (Clear); Bacteria Urine Automated None Seen (None Seen); Bilirubin Urine Negative (Negative); Blood Urine Negative (Negative); Cast Urine Automated 0-2 /lpf (0-2); Color Urine Yellow; Epithelial Cell Urine Auto 0-2 /hpf (0-2); Glucose Urine UA Negative (Negative); Ketones Urine 1+ (Negative); Leukocyte Esterase Urine Trace (Negative); Nitrite Urine Negative (Negative); Protein Urine Negative (Negative); RBC Urine Automated 0-2 /hpf (0-2); Specific Gravity Urine 1.014 (1.000-1.030); Urobilinogen Urine Negative (Negative); WBC Urine Automated 0-5 /hpf (0-5); pH Urine 6.5 (4.5-7.5)
[2023-11-06 07:37] LABS: Basophils # (auto) 0.02 K/uL (0.00-0.20); Basophils % (auto) 0.2 %; Eosinophils % (auto) 1.2 %; Hematocrit (blood only) 38.2 % (37.0-47.0); Hemoglobin 12.3 g/dl (12.0-16.0); Immature Granulocytes # (auto) 0.02 K/uL (0.01-0.20); Immature Granulocytes % (auto) 0.2 %; Lymphocytes # (auto) 1.85 K/uL (1.20-3.40); Lymphocytes % (auto) 22.5 %; Mean Corpuscular Hemoglobin 29.3 pg (25.0-34.0); Mean Corpuscular Hgb Conc 32.2 g/dL (32.0-36.0); Monocytes # (auto) 0.47 K/uL (0.11-0.59); Monocytes % (auto) 5.7 %; Neutrophils # (auto) 5.76 K/uL (1.40-6.50); Neutrophils % (auto) 70.2 %; Platelet Count 202 K/uL (130-400); RDW Coefficient of Variation 12.5 % (11.5-14.5); RDW Standard Deviation 41.3 fL (36.4-46.3); White Blood Count 8.22 K/ul (4.8-10.8)
[2023-11-06] MEDS: COUGH DROP (SUGAR FREE) LOZ 24 LOZ/1 BOX BUCCAL ONE (07:52)
[2023-11-06 07:58] LABS: Albumin Globulin Ratio 1.8 (0.9-2); Albumin Level 3.5 gm/dl (3.4-5.0); BUN Creatinine Ratio 14.5 (10-20); Bilirubin,Total 0.5 mg/dl (0.2-1.0); Calcium 8.1 mg/dl (8.6-10.3); Creatinine Clr Calc Pharmacy 92.4 ml/min; Est GFR (African American) 116.8 ml/min; Est GFR (Non-African American) 100.8 ml/min; Potassium 3.7 mmol/L (3.5-5.1); Total Protein 5.5 gm/dl (6.0-8.3)
--- NOTE | 2023-11-06 10:53 | Surgery Progress Note ---
Date of Service November 06, 2023 Assessment & Plan (1) S/P laparoscopic cholecystectomy: Plan: POD#1 robotic cholecystectomy, doing well, labs downtrending. Bacteremia diet as tolerated pnt may shower is, oobtc, ambulate okay to d/c from surgery standpoint, however defer to medicine given bacteremia wound care instructions, activity restrictions, and return precautions given f/u in 2 weeks surgery will follow while in house. (2) Acute cholecystitis: (3) Bacteremia: Admission and Anticipated Discharge Date Admission Date: November 04, 2023 Subjective POD#1 robotic cholecystectomy. Feeling better, tolerating diet. Physical Exam Constitutional: WD/WN, vitals as above Gastrointestinal (Abdomen): Inspection/Auscultation: + abdominal surgical incision (no infection) Percussion/Palpation: + abdomen tender (appropriate); no guarding and abdomen not rigid Results & Data Vital Signs (Past 12 Hours) Vital Signs Temp Pulse Resp BP Pulse Ox O2 Del Method 11/06/23 07:15 36.7 C 64 16 110/67 Room Air 11/06/23 03:19 37.2 C 70 16 120/77 94 Room Air 11/05/23 23:01 37.4 C 68 18 101/67 96 Room Air Laboratory Results Laboratory Results - last 24 hr 11/05/23 11/06/23 Unknown 07:21 WBC 8.22 RBC 4.20 Hgb 12.3 Hct 38.2 MCV 91.0 MCH 29.3 MCHC 32.2 RDW Std Deviation 41.3 RDW Coeff of Sissy 12.5 Plt Count 202 MPV 9.0 L Immature Gran % (Auto) 0.2 Neut % (Auto) 70.2 Lymph % (Auto) 22.5 Robertson % (Auto) 5.7 Eos % (Auto) 1.2 Baso % (Auto) 0.2 Neut # (Auto) 5.76 Lymph # (Auto) 1.85 Robertson # (Auto) 0.47 Eos # (Auto) 0.10 Baso # (Auto) 0.02 Immature Gran # (Auto) 0.02 Sodium 141 Potassium 3.7 Chloride 108 H Carbon Dioxide 28 Anion Gap 5 BUN 9 Creatinine 0.62 Est Cr Clr Drug Dosing 92.4 Est GFR ( Amer) 116.8 Est GFR (Non-Af Amer) 100.8 BUN/Creatinine Ratio 14.5 Glucose 101 H Calcium 8.1 L Total Bilirubin 0.5 AST 54 H ALT 204 H Alkaline Phosphatase 77 Total Protein 5.5 L Albumin 3.5 Globulin 2.0 L Albumin/Globulin Ratio 1.8 Urine Color Yellow Urine Appearance Clear Urine pH 6.5 Ur Specific [place] 1.014 Urine Protein Negative Urine Glucose (UA) Negative Urine Ketones 1+ H Urine Blood Negative Urine Nitrite Negative Urine Bilirubin Negative Urine Urobilinogen Negative Ur Leukocyte Esterase Trace H Urine WBC (Auto) 0-5 Urine RBC (Auto) 0-2 U Hyaline Cast (Auto) 0-2 U Epithel Cells (Auto) 0-2 Urine Bacteria (Auto) None Seen PG Care Time/CCT Total # of Minutes Spent Total Time Spent with Patient: Total time spent is greater than 50% in coordination of care (as documented) at patient's floor/unit and/or counseling patient: Coding Level of Care Code 85816 Post Operative Follow-Up Diagnoses S/P laparoscopic cholecystectomy Z90.49 Acute cholecystitis K81.0 Bacteremia R78.81
--- NOTE | 2023-11-06 11:44 | Hospitalist Progress Note ---
Date of Service November 06, 2023 Assessment & Plan (1) Acute cholecystitis: Plan: Suspected on CT although clinically she does not have right upper quadrant pain, it is more in epigastric region Ultrasound was equivocal therefore, consulted surgery, plan for MRCP Lipase WNL. Troponin neg x 2 blood cultures: 3/4 positive for gram-negative bacilli, bio fire with E. coli - suspect gallbladder as a source. Although UA was not collected on admission. Will collect - noting after multiple abx doses - Sensitivities Pending Continue antibiotics: Metronidazole and ciprofloxacin - patient was given ceftriaxone on 11/03 and had a reaction with flushing and emesis x 1. Symptoms resolved spontaneously. no elevation of eosinophils. Suspect adverse reaction and not true allergy - recommend outpatient nonurgent allergy follow up Consult general surgery - S/P antibiotics laparoscopic cholecystectomy with Dr. Rivas on 11/04 - continue low fat diet (2) Elevated LFTs: Plan: suspect secondary to cholecystitis continue to downtrend (3) Renal angiomyolipoma: Plan: Noted incidentally on CT. Documented that this was discussed between surgery and Dr. Arzate with plan to follow-up as an outpatient - will add to discharge instructions. 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 I agree w/ the gayle components of her documentation. Vital signs remain stable in the face of e.coli bacteremia. Herb De Los Santos MD Subjective Patient resting in bed. reports has been ambulating in the halls. No pain. tolerating diet. Review of Systems Review of Systems: All systems reviewed & are unremarkable except as noted in Subjective Physical Exam Physical Exam: General: NAD, VS as above Resp: normal respiratory effort, lungs clear to auscultation CV: RRR, no murmur, Abd: Incision without signs of infection, non tender to palpation Extremities: Moves all extremities, no edema Results & Data Results & Data Vital Signs (Past 12 Hours) Vital Signs Temp Pulse Resp BP Pulse Ox O2 Del Method 11/06/23 07:15 36.7 C 64 16 110/67 Room Air 11/06/23 03:19 37.2 C 70 16 120/77 94 Room Air Laboratory Results CBC and chemistry reviewed PG Care Time/CCT Total # of Minutes Spent Total Time Spent with Patient: Total time spent is greater than 50% in coordination of care (as documented) at patient's floor/unit and/or counseling patient: Coding Level of Care Code 25883 SUB INP/OBS CARE 2/35MIN Diagnoses Acute cholecystitis K81.0 Elevated LFTs R79.89 Renal angiomyolipoma D17.71 Horseshoe kidney Q63.1
--- NOTE | 2023-11-07 08:25 | Surgery Progress Note ---
Date of Service November 07, 2023 Assessment & Plan (1) S/P laparoscopic cholecystectomy: Plan: POD#2 robotic cholecystectomy diet tolerated no n/v incisions w/ dermabond CDI okay to d/c from surgery standpoint, however defer to medicine given bacteremia General surgery will follow peripherally , call with question concerns F/u office o/p in [address] Rivas Admission and Anticipated Discharge Date Admission Date: November 06, 2023 Supervising Physician Co-Signing Physician Notes PNT S&E, labs reviewed, agree w/ above. POD#2 robotic king, doing well. Incisions w/o infection. labs normalized. here due to bacteremia, d/c this afternoon. f/u in 2 weeks. Subjective pain controlled tolerating diet , no n/v Review of Systems Constitutional: no fever and no chills Gastrointestinal: no abdominal pain, no nausea and no vomiting Musculoskeletal: no muscle weakness Psychiatric: no confusion Physical Exam Physical Exam: alert oriented Constitutional: cooperative and comfortable; no acute distress Respiratory: normal respiratory effort and + respiratory distress; + not able to speak in complete sentence Cardiovascular: Rate/Rhythm: regular rate Gastrointestinal (Abdomen): Inspection/Auscultation: + abdominal surgical incision (CDI dermabond ); abdomen not distended Percussion/Palpation: abdomen soft Psychiatric: A+Ox3, euthymic affect Results & Data Vital Signs (Past 12 Hours) Vital Signs Temp Pulse Pulse Resp BP Pulse Ox O2 Del Method 11/07/23 07:27 97.2 F L 60 16 112/71 92 Room Air 11/06/23 20:26 99.1 F 65 16 126/77 97 Room Air PG Care Time/CCT Total # of Minutes Spent Total Time Spent with Patient: Total time spent is greater than 50% in coordination of care (as documented) at patient's floor/unit and/or counseling patient: Coding Level of Care Code 75151 Post Operative Follow-Up Diagnoses S/P laparoscopic cholecystectomy Z90.49
--- NOTE | 2023-11-07 09:26 | Discharge Summary ---
Discharge Summary Date of Service November 07, 2023 Notes For Next Care Provider Admitted with abdominal pain, found to be acute cholecystitis - removed with Dr. Rivas on 11/04. Bactermic - discharged on BID cipro. Incidental finding of horseshoe kidney with possible renal angiomyolipomas - patient has urology follow up already scheduled. Medication Changes From Visit Cipro 750 mg twice daily x 12 days Admission HPI Per Admitting Provider Ly Huynh is a 57-year-old female who presents to the ER with chest/epigastric pain that started in the middle of the night (around 12:30am). Initial severity pain is 10 out of 10, sharp pain, not completely gone away since, couldn't get any relief no water what she did, tums didn't help. From breast bone to epigastric area. Severity currently 2-4/10. No radiation to back. [place] nauseous and clammy with palpitations, but no vomiting. No shortness of breath. Never had a similar feeling previously. Did not eat out yesterday. x2 loose /watery bowel movements since this morning. No melena or hematochezia. Last colonoscopy in 2016 was unremarkable. No prior DC or stroke. History of migraines. Takes meloxicam daily but missed medications this morning. No history of GERD, regular antacid use or acid taste in her mouth. Principal Dx & Hospital Course #1 = Principal Diagnosis (1) Acute cholecystitis: Suspected on CT although clinically she does not have right upper quadrant pain, it is more in epigastric region Ultrasound was equivocal therefore, consulted surgery, plan for MRCP Lipase WNL. Troponin neg x 2 blood cultures: 3/4 positive for gram-negative bacilli, bio fire with E. coli - suspect gallbladder as a source. - Mari sensitive - discharged with PO ciprofloxacin for total of 14 day course. Continue antibiotics: Metronidazole and ciprofloxacin - patient was given ceftriaxone on 11/03 and had a reaction with flushing and emesis x 1. Symptoms resolved spontaneously. no elevation of eosinophils. Suspect adverse reaction and not true allergy - recommend outpatient nonurgent allergy follow up Consult general surgery - S/P antibiotics laparoscopic cholecystectomy with Dr. Rivas on 11/04 - continue low fat diet (2) Elevated LFTs: suspect secondary to cholecystitis continue to downtrend (3) Renal angiomyolipoma: Noted incidentally on CT. Documented that this was discussed between surgery and Dr. Arzate with plan to follow-up as an outpatient - already scheduled (4) Horseshoe kidney: Incidental finding on CT scan (5) Bacteremia: Plan Dispo: discharge to home today Discharge Exam General: NAD, VS as above Resp: normal respiratory effort, lungs clear to auscultation CV: RRR, no murmur, Abd: Incision without signs of infection, non tender to palpation Extremities: Moves all extremities, no edema Updated Medication List Medication Instructions Recorded Confirmed Type fremanezumab-vfrm 225 mg/1.5 mL 225 mg (1.5 mL) subcut MONTHLY #1 06/10/23 11/17/23 Rx subcutaneous syringe mL sumatriptan succinate 100 mg tablet 100 mg PO .COMPLEX PRN migraine 06/10/23 11/17/23 Rx headache #9 tabs meloxicam 15 mg tablet 15 mg PO DAILY #30 tabs 08/14/23 11/17/23 Rx ciprofloxacin HCl 750 mg tablet 750 mg PO BID 12 days #24 tabs 11/07/23 11/17/23 Rx doxycycline hyclate 100 mg capsule 200 mg (2 x 100 mg) PO ONCE #2 caps 11/17/23 11/17/23 Rx Hospital Stay Data Consultations 11/04/23 12:57 ED Decision to Admit Stat 11/04/23 12:58 Consult General Surgery Stat Procedures Performed Operation Date: 11/05/23 09:40 Actual Procedures p Robotic Laparoscopic Cholecystectomy(Not Applicable) - Joel Rivas, DO, FACS Diagnostic Imagining Performed Chest X-Ray 11/04/23 08:25 XR chest 1V portable HISTORY: Chest pain, nonspecific COMPARISON: Chest 08/08/2016. FINDINGS: There are low lung volumes. No focal lung consolidations to suggest a pneumonia. No evidence for pulmonary edema. The cardiac silhouette remains top normal in size. No acute fractures. IMPRESSION: No acute process. ACT 112: Negative or not required by law. Electronically signed by: Justino La M.D. 11/04/2023 8:59 AM Abdomen/Pelvis CT 11/04/23 09:[address] WITH IV CONTRAST CT DOSE: 932.4 mGy.cm HISTORY: upper abd pain TECHNIQUE: Multiaxial CT images of the abdomen and pelvis were performed following the use of intravenous contrast. A dose lowering technique was utilized adhering to the principles of ALARA. COMPARISON STUDY: None. FINDINGS: Patchy and linear densities at the lung bases favor dependent change/atelectasis. No pneumoperitoneum. No pneumatosis. No acute fractures identified. There is a 3 cm duodenal diverticulum. A 5 mm hypodense lesion within the right hepatic lobe on image 48 is too small to characterize but favors a cyst. There is an 8 mm hypodense focus within the posterior segment of the right hepatic lobe on image 35. There is also too small to characterize but may represent a benign lesion such as a hemangioma. The spleen, adrenal glands, and pancreas are unremarkable. Multiple small gallstones. There is pericholecystic edema. This raises the possibility of an acute cholecystitis. There is a horseshoe kidney. No ureteral stones. No hydronephrosis. There appear to be a few punctate nonobstructing stones within the left lower pole moiety on image 153. In addition, the left renal moiety contains 2 similar-appearing masses. These renal masses demonstrate soft tissue and macroscopic fatty components. Therefore, these favor angiomyolipomas. These masses measure 5.2 cm and 5.5 cm. The main portal vein is patent. No retroperitoneal lymphadenopathy. There is a left circumaortic renal vein. Normal caliber abdominal aorta. No pelvic lymphadenopathy or pelvic free fluid. The bladder is mildly distended. No bladder wall thickening. The uterus and bilateral adnexa are unremarkable. Colonic diverticulosis. No evidence for acute diverticulitis. Normal appendix. No bowel wall thickening or obstruction. IMPRESSION: 1. Multiple small gallstones with pericholecystic edema. This raises the possibility of acute cholecystitis. Surgical consultation recommended. 2. Horseshoe kidney. There are few punctate nonobstructing stones within the left renal moiety. No ureteral stones. No hydronephrosis. 3. There are 2 similar-appearing masses within the left renal moiety which contain macroscopic fat and therefore favor angiomyolipomas. Both these lesions measure greater than 5 cm in size. Therefore, follow-up nonemergent urology consultation recommended for possible resection as these lesions present a high risk of hemorrhage. 4. No bowel wall thickening or obstruction. 5. Normal appendix. 6. Additional findings as described above. ACT 112: Negative or not required by law. Electronically signed by: Justino La M.D. 11/04/2023 10:00 AM Liver Ultrasound 11/04/23 10:51 ABDOMINAL ULTRASOUND, RIGHT UPPER QUADRANT HISTORY: eval acute king, elevated AST/AST. COMPARISON: Abdomen and pelvis CT 11/04/2023. FINDINGS: Pancreas: The pancreas demonstrates a normal echotexture. Liver: There is 9 mm cyst within the right hepatic lobe. The main portal vein is patent. Gallbladder: A few small gallstones. Mild gallbladder wall thickening and trace pericholecystic edema. The gallbladder wall measures approximately 5 mm. However, the technologist reported a negative sonographic Dobbins sign. CBD: Upper limits of normal measuring 6 mm. Right kidney: Horseshoe kidney again noted. No hydronephrosis. Partially visualized mass within the left lower pole moiety again noted which is better appreciated on the same day abdomen and pelvis CT. IMPRESSION: 1. A few small gallstones with gallbladder wall thickening and trace pericholecystic fluid. However, the technologist reported a negative sonographic Dobbins sign. Therefore, these findings are equivocal for acute cholecystitis and could be related to underlying hepatic pathology or a low protein state. Consider follow-up nuclear medicine HIDA scan if there is clinical concern for acute cholecystitis. 2. Horseshoe kidney. No hydronephrosis. A partially visualized mass within the left lower pole moiety is better appreciated on the same day abdomen and pelvis CT. ACT 112: Negative or not required by law. Electronically signed by: Justino La M.D. 11/04/2023 12:01 PM Cholangiopancreatography MRI 11/04/23 13:19 MRCP CLINICAL HISTORY: ?choledocholithiasis TECHNIQUE: Utilizing a 1.5 Petra magnet and dedicated coil, multiplanar, multiecho imaging of the upper abdomen was performed utilizing heavily T2 weighted pulsing sequences without IV contrast. COMPARISON STUDY: CT of the abdomen and pelvis and right upper quadrant ultrasound performed earlier today. FINDINGS: There is no intra or extra hepatic biliary ductal dilatation. No common bile duct calculi are identified. No hepatic lesions are identified with the exception of a small hepatic cyst. Multiple gallstones within gallbladder present. The gallbladder is mildly distended. There is mild gallbladder wall thickening. Pancreas is unremarkable on unenhanced exam. The spleen and adrenal glands are also unremarkable. Diverticulum of the second portion of duodenum is present. There is a horseshoe kidney. Two fat-containing masses arising from the left renal moiety measure up to 5.5 cm. There is no hydronephrosis. There is no abdominal lymphadenopathy or ascites. Caliber and wall thickness of visualized small and large bowel are normal. IMPRESSION: 1. No biliary ductal dilatation. No common bile duct calculi. 2. Cholelithiasis with mild gallbladder wall thickening. The findings raise the possibility of acute cholecystitis. 3. Horseshoe kidney. Two fat-containing masses arising from the left renal moiety, as described on CT performed earlier today. These suggest angiomyolipomas. Nonemergent Urology consultation is recommended ACT 112: Negative or not required by law. Electronically signed by: Wenceslao Estrada M.D. 11/04/2023 6:00 PM Pending Results Patient Have Any Pending Studies at Discharge: Yes Discharge Instructions Given to Patient (Per Discharging Provider) Ms. Huynh, hospitalized after acute onset abdominal pain, this was found to be acute cholecystitis. The gallbladder was removed with Dr. Rivas on 11/04. You were also found to have bacteria in the blood - this was treated with IV antibiotics while you were here. You will continue on oral Ciprofloxacin at discharge. Start this tonight, 11/06 and take twice a day. During your CT scan, you were also found to have a horseshoe kidney with concerns for angiomyolipomas. While these are benign, they should be monitored and may have to be removed if they become too big as you are at risk for bleeding. You will need to follow up with urology regarding this - appointment as above. You also had a reaction to ceftriaxone, an antibiotic while you were here. We are unsure if this was an adverse reaction/side effect vs a true allergy. Recommend that you follow up with inspector filter tip for further testing to determine which antibiotics are safe for you to take in the future. Total Time Total Time Spent Total Time Spent (In Minutes): Time spend day of discharge 35 minutes including direct patient care, medication reconciliation, documentation, review of labs and images, and coordination of care. Supervising Physician Co-Signing Physician Notes Attending Attestation and Discharge Note: Pt seen/examined, chart reviewed, discharge care plan d/w KEAGAN Selby. I agree w/ the gayle components of her discharge documentation. 57yo female who presented with acute abd pain 2nd to acute cholecystitis. Stay was complicated by e.coli bacteremia. Source - suspect the gall bladder. U/a largely wnl. Underwent uncomplicated lap king by Dr Joel Rivas. Received IV antibiotics for her bacteremia, and will d/c home on PO cipro 750mg BID. Total IV/PO abx course - 14 days. Horseshoe kidney with angiomyolipomas - [facility] [place] Urology f/u needed to address the latter. Discharge exam: gen - NAD, looks well, nontoxic mouth - MMM neck - no JVD heart - RRR, s1 s2, no murmur lungs - CTA b/l abd - soft; minimal incisional tenderness; BS+; no HSM ext - pulses 2+ b/l skin - incisions abdominal wall clean Herb De Los Santos MD Coding Level of Care Code 16775 INP/OBS DISCH >30 MIN Diagnoses Acute cholecystitis K81.0 Elevated LFTs R79.89 Renal angiomyolipoma D17.71 Horseshoe kidney Q63.1 Bacteremia R78.81
== END 2023-11-07 12:56 | disposition home or self-care (01) | DRG 418 ==
LOC: 3N 08:21 → ED 08:21 → SUATTDRO 13:19 → 3N 14:54